=== PATIENT | male | born 1945 | race Hispanic/Latino ===

== ENCOUNTER 2017-06-08 14:40 | Inpatient (IN) | payer MEDICAID, MEDICARE, OTHER ==
[~2017-06-08] VITALS: Ht 157.5 cm; Wt 59.4 kg
[~2017-06-08 14:40] MED LIST: CLEOCIN HCL150 MG PO; HUMALOG100 UNITS/ SQ; HYDRALAZINE HCL10 MG PO; LEVEMIR100 UNIT/1 SQ; LEVOTHYROXINE50 MCG PO; LIPITOR20 MG PO; LISINOPRIL10 MG PO; PLAVIX75 MG PO
[2017-06-08] MEDS ORDERED: DEXTROSE 50% SYRINGE 50 ML IV PRN (17:15)
[2017-06-08] MEDS ORDERED: MORPHINE SULFATE 2 MG/ML SYR IV PRN ×2 (17:15→20:30)
[2017-06-08] MEDS ORDERED: ONDANSETRON HCL INJ 2 MG/ML VIAL IV PRN (17:15)
--- NOTE | 2017-06-08 17:37 | Diagnostic Imaging Report ---
PROCEDURE:FOOT RIGHT COMPLETE COMPARISON:None. INDICATIONS:RIGHT 2ND TOE PAIN, INFECTION FINDINGS:3 views of the right foot show amputation of the third digit at the mid metatarsal level and amputation of the fifth digit at the distal metatarsal level. There is erosion of the distal aspect of the second distal phalanx with overlying soft tissue swelling. No other fracture or dislocation. Extensive small vessel arterial calcification is noted. CONCLUSION: 1. Erosion of the distal aspect of the second distal phalanx with overlying soft tissue swelling. Findings are concerning for osteomyelitis. MRI may be helpful for further characterization. 2. Amputations of the third and fifth digits at the metatarsal levels. Dictated by: Nikolay Zhang M.D. on 06/08/2017 at 17:46 Electronically approved by: Nikolay Zhang M.D. on 06/08/2017 at 17:46
[2017-06-08] MEDS ORDERED: MORPHINE SULFATE 5 MG/ML VIAL IV PRN ×2 (17:45→21:45)
[2017-06-08 19:10] LABS: BASOPHILS % 0.4 % (0.0-1.0); EOSINOPHILS # (AUTO) 0.1 (0.0-0.4); EOSINOPHILS % 0.9 % (0.0-6.0); HEMATOCRIT 33.4 % (38.2-49.6); HEMOGLOBIN 11.8 g/dL (14.0-18.0); LYMPHOCYTES # (AUTO) 1.9 (1.0-3.2); LYMPHOCYTES % 24.8 % (18.0-39.1); MEAN CORPUSCULAR HEMOGLOBIN 33.1 pg (28-32); MEAN CORPUSCULAR HGB CONC 35.3 g/dL (31-35); MEAN CORPUSCULAR VOLUME 93.8 fL (81-99); MONOCYTES # (AUTO) 0.7 (0.2-0.8); MONOCYTES % 8.8 % (4.4-11.3); NEUTROPHILS % 64.8 % (38.7-80.0); PLATELET COUNT 194 x10e3/uL (140-360); RED BLOOD COUNT 3.56 x10e6/uL (4.3-5.7); RED CELL DISTRIBUTION WIDTH 12.1 % (11.7-14.4)
[2017-06-08 19:17] LABS: INR 0.89; PROTHROMBIN TIME 12.5 seconds (11.9-14.5)
[2017-06-08 19:18] LABS: PARTIAL THROMBOPLASTIN TIME 41.2 seconds (23.8-35.5)
[2017-06-08 19:25] LABS: ALBUMIN 3.8 g/dL (3.5-5.0); ALBUMIN/GLOBULIN RATIO 0.9 (0.8-2.0); ANION GAP 10.1 mmol/L (8-16); CALCIUM 9.4 mg/dL (8.4-10.2); CREATININE, SERUM 1.27 mg/dL (0.72-1.25); POTASSIUM 4.1 mmol/L (3.5-5.1)
[2017-06-08] MEDS: CEFEPIME HCL 1 GM VIAL IV SCH (20:50)
[2017-06-08] MEDS: INSULIN REGULAR, HUMAN 100 UNIT/1 ML 3ML VIAL SQ SCH (20:50)
[2017-06-08] MEDS ORDERED: CEFEPIME HCL 1 GM VIAL IV SCH (21:00)
[2017-06-08] MEDS ORDERED: VANCOMYCIN 1GM/NS 250 ML 250 ML IV SCH ×2 (21:00→21:01)
[2017-06-08] MEDS: HYDRALAZINE HCL 10 MG TAB PO SCH (21:15)
[2017-06-08 21:17] LABS: CHOL/HDL RATIO 2.8 (3.9-4.7)
[2017-06-08 21:36] LABS: THYROID STIMULATING HORMONE 0.254 uIU/mL (0.350-4.940)
--- NOTE | 2017-06-08 21:56 | History and Physical ---
Patient was seen in the office last week with an inflamed gangrenous toe of the right foot. He is advised, at that time, to go to the emergency room for emergent hospitalization, for vascular reassessment, and likely further surgical treatment. History has included amputation of 2 toes previously on left foot and of toes 3 and 5 on the right foot. The patient has a long history of chronically uncontrolled diabetes mellitus with limited compliance. A1c around high chronically. History includes significant peripheral vascular. 1st and 2nd toes left foot and distal forefoot prior amputations on the left. History includes reactive PPD. Primary hypertension. Hyperlipoproteinemia. The patient previously declined recommended meds and colonoscopy, and ophthalmology examinations and diets. Pneumovax was given 2014 and need not be given in this hospitalization again. Currently on review of systems, the patient denies headache or visual change. Denies chest pain or shortness of breath. He has been sedentary. Denies current nausea, vomiting or diarrhea. No bleeding. Denies symptoms. He has had some discomfort in his ischemic toe on the right foot. The patient's history is not known to be reliable. He denies surgeries other than as mentioned above. Positive family history of diabetes. SOCIAL HISTORY: Denies alcohol. Stopped smoking approximately 17 years ago. See also prior visit here in August. Had been treated, at that time, for inflammation of the left foot. He was kindly seen and by Dr. Easton and underwent August 12 angiography and revascularization percutaneously involving the left anterior tibial artery with arthrectomies and balloon angioplasty, see operative notes. See also prior to admission med list when available per electronic medical record. Patient does not know his current meds. Will review office records when able. See also admitting orders by ER physicians including Dr. Amaro. Current hemoglobin 11.8, white count 7.7, platelets 194,000. INR 0.89. Admission glucose per ER 212. Creatinine 1.27, BUN 30. Blood cultures requested per ER. Foot x-ray today distal aspect 2nd distal phalanx with overlying soft tissue swelling. "Findings are concerning for osteomyelitis." Prior amputations 3rd and 5th digits at the metatarsal levels. EXAM GENERAL: The patient is in no distress now. VITALS: Temperature 97.2. Pulse 69 and regular. Respiratory rate 16. BP 158/71. O2 sat 100%. HEENT: Pupils round, reactive. Lenses hazy. Throat clear. NECK: Supple. Carotids palpable. PULMONARY: Auscultation grossly clear. CARDIAC: Sounds S1, S2 soft. ABDOMEN: Soft. Bowel sounds normal. EXTREMITIES: Lower extremities without edema or clubbing. Lower extremities without palpable pulses. Patient's testing for sensation is grossly intact according to the patient's responses. He does have a ischemic right gangrenous right 2nd distal phalanx. Possible osteomyelitis per x-ray as mentioned. NEURO: DTRs depressed. Strength fair. Sensorium is baseline. GENITALIA: Negative. CURRENT IMPRESSION: Chronically ill gentleman with chronically uncontrolled diabetes mellitus with limited compliance. Multiple severe medical illnesses as mentioned above. These include hyperlipoproteinemia. Peripheral vascular disease. Diabetic nephropathy. Chronic hypothyroidism. Prior amputations, multiple toes as above including right foot prior amputation of 3rd and 5th toes. Left forefoot, 1 and 2 toes. Primary hypertension as mentioned. Patient presents now with dry gangrenous with possibly osteomyelitis changes, distal phalanx, 2nd toe. CURRENT PLANS: To assess the patient's vascular status. Podiatric surgical consultation was requested by ER physician. 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 Antibiotics were initiated. To follow up diabetic parameters and blood pressures closely. See also initial and followup orders. Need to follow up drug level and adjustment of antibiotics appropriate for his size and renal function. Needs appropriate diet. To attempt reeducation. See also initial and followup orders. Job#: [id number] CQ
[2017-06-09] VITALS (7 sets, daily range): BP systolic 123–164; BP diastolic 72–88
[2017-06-09] MEDS ORDERED: LEVOTHYROXINE SODIUM 50 MCG TAB PO SCH ×2 (06:00→09:00)
--- NOTE | 2017-06-09 06:09 | Diagnostic Imaging Report ---
CHEST 2 VIEWS, Technique: CHEST 2 VIEWS Comparison: 08/11/2016 Clinical history: \S\ascvd, high blood pressure \[id number] \S\0535 \S\Y DISCUSSION: Stable appearance of the heart, mediastinum, lungs and pleural spaces. IMPRESSION: No acute abnormality Signed by: Dr Jacqueline Zhao MD on 06/09/2017 6:05 AM
[2017-06-09] MEDS: INSULIN REGULAR, HUMAN 100 UNIT/1 ML 3ML VIAL SQ SCH ×2 (07:30→11:27)
[2017-06-09] MEDS: INSULIN DETEMIR 100 UNIT/ML PEN SQ SCH (09:00)
[2017-06-09] MEDS: CEFEPIME HCL 1 GM VIAL IV SCH ×2 (09:57→23:10)
[2017-06-09] MEDS: HYDRALAZINE HCL 10 MG TAB PO SCH ×3 (09:57→22:10)
[2017-06-09] MEDS: CLOPIDOGREL BISULFATE 75 MG TAB PO SCH (09:57)
[2017-06-09] MEDS: ATORVASTATIN 20 MG TAB PO SCH (09:57)
[2017-06-09 12:13] LABS: FREE THYROXINE INDEX 2.3074 (1.4-3.8); T3 UPTAKE 35.39 % (22.50-37.00)
[2017-06-09] MEDS ORDERED: DEXTROSE 50% SYRINGE 50 ML IV PRN (13:15)
--- NOTE | 2017-06-09 14:21 | Consultation ---
DATE OF CONSULTATION: June 09, 2017 PODIATRY CONSULTATION REASON FOR CONSULTATION: Gangrenous 2nd digit of the right foot. HISTORY OF PRESENT ILLNESS: Mr. Forbes is a pleasant male 72 years of age, admitted secondary to gangrenous changes associated to his right foot. Apparently he was treated as an outpatient basis. He was told to go to the ED last week, per Dr. Sutherland's note. Presented to the ED yesterday or the day before with worsening gangrenous changes to the 2nd digit of the right foot. I was once again asked to evaluate and recommend treatment. PAST MEDICAL HISTORY 1. Uncontrolled diabetes. 2. Peripheral arterial disease. 3. Hypertension. 4. Hyperlipoproteinemia. SURGICAL HISTORY: Multiple digit amputations bilateral feet. FAMILY HISTORY: Noncontributory. ELEVEN-POINT REVIEW OF SYSTEMS: Negative. ALLERGIES: NEGATIVE. MEDICINES: Please see MAR for current medication list. PHYSICAL EXAMINATION GENERAL: AO x3. NAD. HEENT: Normocephalic, atraumatic, anicteric. ABDOMEN: Soft, nontender, nondistended. RESPIRATORY: Symmetrical expansion. No distress. PSYCHIATRIC: Normal affect. EXTREMITIES: Gangrenous changes 2nd digit right foot, distal tip of the same. ASSESSMENT 1. Gangrene 2nd digit right foot. 2. Underlying peripheral arterial disease. PLAN: Recommend digit amputation. Distal tip of the same is nonviable, somewhat moist and fluctuant. Patient educated on risks and complications of the same and is willing and able to proceed. There is a possibility of more proximal amputation if the aforementioned fails. Patient will be placed n.p.o. tonight and surgical intervention tomorrow morning. I would like to thank Dr. Sutherland for allowing me to participate in the care of this patient. Job#: [id number] EV
[2017-06-09] MEDS ORDERED: INSULIN REGULAR, HUMAN 100 UNIT/1 ML 3ML VIAL SQ SCH (16:30)
[2017-06-09] MEDS: INSULIN LISPRO 100 UNIT/1 ML 3ML VIAL SQ SCH ×2 (16:30→22:10)
[2017-06-09] MEDS ORDERED: SODIUM CHLORIDE 0.9% 250ML 250 ML ONE (22:24)
[2017-06-09] MEDS: VANCOMYCIN 1GM/NS 250 ML 250 ML IV SCH (23:15)
[2017-06-10] VITALS: BP 149/74
[2017-06-10 04:00] VITALS: BP 128/75
[2017-06-10] MEDS: LEVOTHYROXINE SODIUM 25 MCG TABLET PO SCH (05:58)
[2017-06-10] MEDS ORDERED: LEVOTHYROXINE SODIUM 50 MCG TAB PO SCH (06:00)
[2017-06-10] MEDS ORDERED: BACITRACIN 50,000 UNIT VIAL ONE (06:36)
[2017-06-10] MEDS ORDERED: LIDOCAINE HCL 2% LOCAL 20 ML VIAL INJ ONE (06:39)
[2017-06-10 07:03] LABS: ANION GAP 12.5 mmol/L (8-16); BLOOD UREA NITROGEN 23 mg/dL (7-26); BUN/CREATININE RATIO 22 (6-25); CALCIUM 9.4 mg/dL (8.4-10.2); CARBON DIOXIDE 25 mmol/L (22-29); CHLORIDE 105 mmol/L (98-107); CREATININE, SERUM 1.05 mg/dL (0.72-1.25); EST GLOMERULAR FILTRATION RATE > 60 ML/MIN (60-); GLUCOSE 237 mg/dL (74-118); POTASSIUM 4.5 mmol/L (3.5-5.1); SODIUM 138 mmol/L (136-145)
[2017-06-10] MEDS: INSULIN LISPRO 100 UNIT/1 ML 3ML VIAL SQ SCH ×4 (07:30→22:10)
--- NOTE | 2017-06-10 07:55 | Operative Report ---
DATE OF PROCEDURE: June 10, 2017 PREOPERATIVE DIAGNOSIS: Gangrene, distal aspect, 2nd digit, right foot. POSTOPERATIVE DIAGNOSIS: Gangrene, distal aspect, 2nd digit, right foot. PROCEDURE: Amputation of distal interphalangeal joint disarticulation, 2nd digit, right foot. ANESTHESIA: General LMA. HEMOSTASIS: Pneumatic tourniquet to right ankle and foot at 150 mmHg. ESTIMATED BLOOD LOSS: Less than 5 mL. JOB CAPTAIN: None. INJECTABLES: Ten mL of 2% lidocaine plain as a postoperative block. INDICATIONS FOR PROCEDURE: Mr. Forbes is a pleasant male admitted secondary to the aforementioned diagnoses with progressive gangrenous changes of the 2nd digit of the right foot. He was educated on risks and complications of amputation, including, but not limited to the need for more proximal amputation, nonhealing, persistent infection and others. He is willing and able to proceed. DESCRIPTION OF PROCEDURE: Under mild sedation, he was brought to the operating room and placed on the operating table in the supine position. Following induction and administration of general LMA anesthesia by the anesthesia services, a well-padded pneumatic tourniquet was placed on the patient's right ankle. Next, the distal right foot was scrubbed, prepped and draped in the usual aseptic manner. The extremity was then elevated and exsanguinated, and tourniquet inflated. Attention was then directed to the 2nd digit of the right foot where it was disarticulated utilizing 2 fishmouth incisions or using 2 converging elliptical incisions as fishmouth at the level of the PIPJ. The same was then disarticulated and passed from the operative site. Area was then copiously irrigated. Bleeders were cauterized and subsequently closed. The patient was then subsequently extubated, tourniquet deflated and dressings applied. Postoperative block administered. Transferred to the PACU stable. Job#: [id number] WILBER
--- NOTE | 2017-06-10 08:30 | Diagnostic Imaging Report ---
PROCEDURE:FOOT RIGHT AP \T\ LAT TECHNIQUE:AP and lateral views right foot INDICATION:Postoperative evaluation COMPARISON:Patients [facility], DX, FOOT RIGHT COMPLETE, 06/08/2017, 15:03. FINDINGS: See conclusion. CONCLUSION: 1. Interval amputation of the second toe middle and distal phalanges. 2. Expected postsurgical changes at the second toe ray including soft tissue swelling and subcutaneous emphysema. 3. Remaining regional imaged skeleton is intact. Third digit transmetatarsal amputation. Fifth digit metatarsal head amputation. 4. Extensive regional arteriosclerosis. 5. No acute abnormality or evidence of acute osteomyelitis. Dictated by: Sergio Romero M.D. on 06/10/2017 at 8:38 Electronically approved by: Sergio Romero M.D. on 06/10/2017 at 8:38
[2017-06-10] MEDS: CLOPIDOGREL BISULFATE 75 MG TAB PO SCH (09:00)
[2017-06-10] MEDS: CEFEPIME HCL 1 GM VIAL IV SCH ×2 (09:44→21:06)
[2017-06-10] MEDS: HYDRALAZINE HCL 10 MG TAB PO SCH ×3 (09:45→21:06)
[2017-06-10] MEDS: ATORVASTATIN 20 MG TAB PO SCH (09:45)
[2017-06-10] MEDS: INSULIN DETEMIR 100 UNIT/ML PEN SQ SCH (09:46)
[2017-06-10 11:41] VITALS: BP 127/80
--- NOTE | 2017-06-10 14:10 | Consultation ---
DATE OF CONSULTATION: June 09, 2017 CARDIAC CONSULTATION REASON FOR CONSULTATION: Gangrenous right foot involving the 2nd toe and the dorsum of the foot. HISTORY: This is a 72-year-old gentleman, who is very poorly historian. Apparently, patient is known with longstanding history of diabetes mellitus, severe end-organ damage. His diabetes is poorly controlled. He had prior several toe amputations. He was at this institution in August 2016, where he had gangrenous left foot. At that time, we managed successfully to save that foot with CSI atherectomy of the left anterior tibial artery. Subsequently, patient had his surgery of the 1st and 2nd left toe and he had full clearance of his infection and then, it healed beautifully. Patient very noncompliant with medication and as per patient for at least 2 to 3 weeks, he is having gangrenous changes in the right foot. He attributed that to the fact he was in the store and he stepped on something and then, infection started and becoming gangrenous again with fever and chills. It got worsening, he needs to come to the emergency room yesterday. The gangrene is advanced involving the 2nd toe and the dorsum of the right foot. Patient had prior amputation of the 3rd and 5th toe on that foot. Despite all this vascular disease, patient denies having any angina; however, this needs to be taken with precaution because the patient is a poor historian. REVIEW OF SYSTEMS CARDIAC: He denied having angina. He does have easy fatigability, shortness of breath on exertion, but he is able to be functional. He denied having any prior myocardial infarction, any orthopnea, paroxysmal nocturnal dyspnea, syncope or presyncope. PULMONARY: No cough. No hemoptysis. GI: No hematemesis. No melena. : Increased frequency of urination. MUSCULOSKELETAL: Aches and pains. NEUROLOGIC: Severe peripheral neuropathy, decreased sensation of the lower extremities. HEMATOLOGICAL: Easy bruising, but no bleeding. VASCULAR: Patient's status of several toe amputations on the left including the 1st and 2nd toe with salvage intervention sparing his foot and the rest of the leg. Patient also had 3rd and 5th toe on the right foot amputated in the past. SOCIAL HISTORY: He is . He stays with his brother. He stopped smoking in year 1999. He does not drink alcohol. He is retired. PAST MEDICAL HISTORY 1. Diabetes mellitus. 2. Hypertension. 3. Hypercholesterolemia. 4. Repeated lower extremity infection and peripheral arterial vascular disease, status post amputation of the right 3rd and 5th toes and the 1st and 2nd left toe. 5. Salvage intervention and sparing his left foot with atherectomy and angioplasty of the left anterior tibial artery. HOME MEDICATIONS 1. Patient not quite sure what he is taking at home, but, currently, patient placed on vancomycin and cefepime. 2. He started on Lipitor 20 mg a day. 3. Plavix 75 mg a day. 4. Hydralazine 10 mg 3 times a day. 5. Levothyroxine 37.5 mcg a day. ALLERGIES: NONE. FAMILY HISTORY: Strongly positive for diabetes mellitus, hypertension, and coronary artery disease. PHYSICAL EXAMINATION VITALS: Height of 5'2". Weight of 129 pounds. Blood pressure 160/70. Heart rate of 80. Respiratory rate of 18. Afebrile. HEENT: Pupils are reactive. NECK: No elevation of jugular venous pulsation. CHEST: Chest decreased air entry, but clear to auscultation and percussion. HEART: PMI 5th left intercostal space. Normal 1st and 2nd heart sounds with good bowel sounds. ABDOMEN: Soft with good bowel sounds. EXTREMITIES: Palpable femoral pulses +2 left popliteal, +1 right popliteal. No pulses in both feet. On the left foot, nicely healed with amputation of the 1st and 2nd toe. On the right heel, there is wet gangrene involving the 2nd toe, sparing the 1st toe, but extending to the dorsum of the foot. LABORATORY DATA: Sodium of 135, potassium of 4.1, BUN of 30, creatinine of 1.27. Hemoglobin of 11.8, hematocrit 33%, WBC count of 7.8, platelet of 194,000. IMAGING: Chest x-ray showed no major abnormality. Triglyceride of 64, cholesterol of 134, HDL of 48, LDL of 73. TSH of 2.54. IMPRESSIONS AND PLAN 1. Gangrene and cellulitis of the right foot. He will have definitely loss of that toe and probably metatarsal amputation. 2. Advanced severe peripheral arterial vascular disease, status post intervention in August 2016, with salvage of the left foot. 3. Diabetes mellitus, severe end-organ damage. 4. Severe peripheral neuropathy. 5. Hypertension. 6. Chronic renal insufficiency. 7. Hypertension. 8. Proteinuria in his urine. 9. Poorly compliant. Patient scheduled already for surgery tomorrow. Will follow patient's progression. Most likely needs intervention to salvage the right leg, otherwise the level of amputation probably will be high involving BKA. All this discussed and explained for him. Already seen by Dr. Prado and scheduled for surgery tomorrow by divorce attorney. I believe he will not heal and he needs another salvage intervention to save him if possible. Will follow patient's progression with you and thank you for the kind referral. Job#: [id number] CQ
[2017-06-10] MEDS ORDERED: LIDOCAINE HCL 2% LOCAL INJ 5 ML SDV VIAL INJ ONE (14:53)
[2017-06-10] MEDS ORDERED: ONDANSETRON HCL INJ 2 MG/ML VIAL ONE (14:53)
[2017-06-10] MEDS ORDERED: PHENYLEPHRINE HCL 1% 10 MG/ML VIAL ONE (14:53)
[2017-06-10] MEDS ORDERED: PROPOFOL IV EMULSION 10 MG/ML 20 ML VIAL ONE (14:53)
[2017-06-10] MEDS ORDERED: SEVOFLURANE INHAL SOLN 250 ML PEN BTL ONE (14:53)
[2017-06-10] MEDS ORDERED: MIDAZOLAM HCL 2 MG/2 ML VIAL ONE (15:14)
[2017-06-10 16:10] VITALS: BP 115/69
[2017-06-10 20:00] VITALS: BP 141/73
[2017-06-10] MEDS: VANCOMYCIN 1GM/NS 250 ML 250 ML IV SCH (21:15)
[2017-06-11 00:20] VITALS: BP 128/71
[2017-06-11 04:15] VITALS: BP 124/79
[2017-06-11] MEDS: LEVOTHYROXINE SODIUM 25 MCG TABLET PO SCH (05:16)
[2017-06-11] MEDS: INSULIN LISPRO 100 UNIT/1 ML 3ML VIAL SQ SCH ×4 (07:30→21:12)
[2017-06-11 07:37] VITALS: BP 118/67
[2017-06-11] MEDS: INSULIN DETEMIR 100 UNIT/ML PEN SQ SCH (09:00)
[2017-06-11] MEDS: CLOPIDOGREL BISULFATE 75 MG TAB PO SCH (09:23)
[2017-06-11] MEDS: CEFEPIME HCL 1 GM VIAL IV SCH ×2 (09:23→20:49)
[2017-06-11] MEDS: HYDRALAZINE HCL 10 MG TAB PO SCH ×3 (09:23→20:49)
[2017-06-11] MEDS: ATORVASTATIN 20 MG TAB PO SCH (09:23)
[2017-06-11 11:21] VITALS: BP 121/71
[2017-06-11 15:35] VITALS: BP 132/81
[2017-06-11 20:00] VITALS: BP 153/86
[2017-06-11] MEDS: VANCOMYCIN 1GM/NS 250 ML 250 ML IV SCH (20:49)
[2017-06-12] VITALS: BP 140/77
[2017-06-12 04:00] VITALS: BP 141/69
[2017-06-12] MEDS: LEVOTHYROXINE SODIUM 25 MCG TABLET PO SCH (05:28)
[2017-06-12] MEDS: INSULIN LISPRO 100 UNIT/1 ML 3ML VIAL SQ SCH ×4 (07:30→21:00)
[2017-06-12 07:40] VITALS: BP 138/77
[2017-06-12] MEDS: CEFEPIME HCL 1 GM VIAL IV SCH ×2 (09:29→21:19)
[2017-06-12] MEDS: CLOPIDOGREL BISULFATE 75 MG TAB PO SCH (09:30)
[2017-06-12] MEDS: HYDRALAZINE HCL 10 MG TAB PO SCH ×3 (09:30→21:20)
[2017-06-12] MEDS: ATORVASTATIN 20 MG TAB PO SCH (09:30)
[2017-06-12] MEDS: INSULIN DETEMIR 100 UNIT/ML PEN SQ SCH (09:31)
[2017-06-12 11:27] VITALS: BP 137/77
[2017-06-12 15:47] VITALS: BP 111/71
[2017-06-12] MEDS: ENOXAPARIN SOD INJ 40 MG/0.4 ML SYR SC SCH (17:38)
[2017-06-12 20:00] VITALS: BP 149/80
[2017-06-12] MEDS: VANCOMYCIN 1GM/NS 250 ML 250 ML IV SCH (21:20)
[2017-06-13] VITALS: BP 144/79
[2017-06-13 04:00] VITALS: BP 134/67
[2017-06-13] MEDS: LEVOTHYROXINE SODIUM 25 MCG TABLET PO SCH (06:10)
[2017-06-13 08:00] VITALS: BP 140/77
[2017-06-13] MEDS: INSULIN LISPRO 100 UNIT/1 ML 3ML VIAL SQ SCH ×4 (08:00→21:00)
[2017-06-13] MEDS: CEFEPIME HCL 1 GM VIAL IV SCH ×2 (09:00→21:00)
[2017-06-13] MEDS: HYDRALAZINE HCL 10 MG TAB PO SCH ×3 (09:00→21:00)
[2017-06-13] MEDS: CLOPIDOGREL BISULFATE 75 MG TAB PO SCH (09:00)
[2017-06-13] MEDS: ATORVASTATIN 20 MG TAB PO SCH (09:00)
[2017-06-13] MEDS: INSULIN DETEMIR 100 UNIT/ML PEN SQ SCH (09:00)
[2017-06-13 12:00] VITALS: BP 139/74
[2017-06-13 16:00] VITALS: BP 148/79
[2017-06-13] MEDS: ENOXAPARIN SOD INJ 40 MG/0.4 ML SYR SC SCH (17:00)
[2017-06-13 20:00] VITALS: BP 133/71
[2017-06-13] MEDS: VANCOMYCIN 1GM/NS 250 ML 250 ML IV SCH (21:01)
[2017-06-14] VITALS: BP 124/59
[2017-06-14 04:00] VITALS: BP 124/61
[2017-06-14] MEDS: LEVOTHYROXINE SODIUM 25 MCG TABLET PO SCH (06:00)
[2017-06-14 07:19] LABS: BASOPHILS % 0.6 % (0.0-1.0); EOSINOPHILS # (AUTO) 0.2 (0.0-0.4); EOSINOPHILS % 2.4 % (0.0-6.0); HEMATOCRIT 33.3 % (38.2-49.6); HEMOGLOBIN 11.6 g/dL (14.0-18.0); LYMPHOCYTES # (AUTO) 1.7 (1.0-3.2); LYMPHOCYTES % 27.2 % (18.0-39.1); MEAN CORPUSCULAR HGB CONC 34.8 g/dL (31-35); MEAN CORPUSCULAR VOLUME 94.6 fL (81-99); MONOCYTES # (AUTO) 0.6 (0.2-0.8); MONOCYTES % 9.3 % (4.4-11.3); NEUTROPHILS # (AUTO) 3.7 (2.1-6.9); PLATELET COUNT 212 x10e3/uL (140-360); RED BLOOD COUNT 3.52 x10e6/uL (4.3-5.7); RED CELL DISTRIBUTION WIDTH 11.9 % (11.7-14.4)
[2017-06-14] MEDS: INSULIN LISPRO 100 UNIT/1 ML 3ML VIAL SQ SCH ×4 (07:30→22:04)
[2017-06-14 07:44] LABS: ANION GAP 10.3 mmol/L (8-16); CALCIUM 9.2 mg/dL (8.4-10.2); CREATININE, SERUM 1.25 mg/dL (0.72-1.25); POTASSIUM 4.3 mmol/L (3.5-5.1)
[2017-06-14 08:00] VITALS: BP 128/77
[2017-06-14] MEDS ORDERED: INSULIN DETEMIR 100 UNIT/ML PEN SQ SCH (09:00)
[2017-06-14] MEDS: CLOPIDOGREL BISULFATE 75 MG TAB PO SCH (09:00)
[2017-06-14] MEDS: CEFEPIME HCL 1 GM VIAL IV SCH (09:00)
[2017-06-14] MEDS: HYDRALAZINE HCL 10 MG TAB PO SCH ×3 (09:00→21:00)
[2017-06-14] MEDS: ATORVASTATIN 20 MG TAB PO SCH (09:00)
[2017-06-14] MEDS: SODIUM CHLORIDE 0.9% 1000ML 1,000 ML IV SCH ×2 (10:47→20:47)
[2017-06-14 12:00] VITALS: BP 135/74
[2017-06-14 16:00] VITALS: BP 159/91
[2017-06-14 20:00] VITALS: BP 147/82
[2017-06-15] VITALS: BP 134/70
[2017-06-15] MEDS: LEVOTHYROXINE SODIUM 25 MCG TABLET PO SCH (03:08)
[2017-06-15 04:00] VITALS: BP 133/60
[2017-06-15 07:20] LABS: BASOPHILS % 0.6 % (0.0-1.0); EOSINOPHILS # (AUTO) 0.1 (0.0-0.4); EOSINOPHILS % 1.6 % (0.0-6.0); HEMATOCRIT 32.1 % (38.2-49.6); HEMOGLOBIN 11.3 g/dL (14.0-18.0); LYMPHOCYTES # (AUTO) 1.9 (1.0-3.2); LYMPHOCYTES % 27.7 % (18.0-39.1); MEAN CORPUSCULAR HEMOGLOBIN 33.3 pg (28-32); MEAN CORPUSCULAR HGB CONC 35.2 g/dL (31-35); MEAN CORPUSCULAR VOLUME 94.7 fL (81-99); MONOCYTES # (AUTO) 0.6 (0.2-0.8); MONOCYTES % 9.2 % (4.4-11.3); PLATELET COUNT 200 x10e3/uL (140-360); RED BLOOD COUNT 3.39 x10e6/uL (4.3-5.7); RED CELL DISTRIBUTION WIDTH 11.9 % (11.7-14.4)
[2017-06-15] MEDS: INSULIN LISPRO 100 UNIT/1 ML 3ML VIAL SQ SCH ×4 (07:30→22:03)
[2017-06-15 07:46] LABS: ALANINE AMINOTRANSFERASE 14 IU/L (0-55); ALBUMIN 3.1 g/dL (3.5-5.0); ALBUMIN/GLOBULIN RATIO 0.9 (0.8-2.0); ALKALINE PHOSPHATASE 47 IU/L (40-150); ANION GAP 11.4 mmol/L (8-16); BLOOD UREA NITROGEN 25 mg/dL (7-26); BUN/CREATININE RATIO 24 (6-25); CALCIUM 8.7 mg/dL (8.4-10.2); CARBON DIOXIDE 26 mmol/L (22-29); CHLORIDE 107 mmol/L (98-107); CREATININE, SERUM 1.03 mg/dL (0.72-1.25); EST GLOMERULAR FILTRATION RATE > 60 ML/MIN (60-); GLUCOSE 229 mg/dL (74-118); POTASSIUM 4.4 mmol/L (3.5-5.1); SODIUM 140 mmol/L (136-145)
[2017-06-15 07:55] VITALS: BP 151/78
[2017-06-15] MEDS: CEFEPIME HCL 1 GM VIAL IV SCH (08:53)
[2017-06-15] MEDS: HYDRALAZINE HCL 10 MG TAB PO SCH ×3 (09:00→22:02)
[2017-06-15] MEDS: INSULIN DETEMIR 100 UNIT/ML PEN SQ SCH ×2 (09:00→11:59)
[2017-06-15] MEDS: ATORVASTATIN 20 MG TAB PO SCH (09:00)
[2017-06-15] MEDS: CLOPIDOGREL BISULFATE 75 MG TAB PO SCH (09:00)
[2017-06-15] MEDS: VANCOMYCIN 750MG/NS 150ML IVPB 150 ML IV SCH (09:01)
[2017-06-15] MEDS ORDERED: MIDAZOLAM HCL 2 MG/2 ML VIAL ONE (11:00)
[2017-06-15] MEDS ORDERED: HEPARIN SOD (PORCINE) 1000 UNIT/ML 30ML ONE (11:00)
[2017-06-15] MEDS ORDERED: FENTANYL CITRATE/PF 100MCG/2 ML INJ ONE (11:00)
[2017-06-15] MEDS ORDERED: HEPARIN SOD/SOD CHLORIDE 2,000 ML ONE (11:01)
[2017-06-15] MEDS ORDERED: SODIUM CHLORIDE 0.9% 1000ML 1,000 ML ONE ×2 (11:01→11:53)
[2017-06-15] MEDS ORDERED: IOPAMIDOL 300MG/ML 100 ML INFUS..BTL IV ONE ×2 (11:01→12:08)
[2017-06-15] MEDS ORDERED: LIDOCAINE HCL 2% LOCAL 20 ML VIAL ONE (11:01)
[2017-06-15 11:21] VITALS: BP 133/77
--- NOTE | 2017-06-15 11:36 | Consultation ---
DATE OF CONSULTATION: June 15, 2017 HISTORY OF PRESENT ILLNESS: Isai Forbes is a pleasant, 72-year-old gentleman with underlying history of type-2 diabetes and multiple medical issues including prior positive PPD test and underlying history of hypertension. The patient currently denies any history of prostate enlargement or kidney stone disease. Has had amputations of both right and left feet of toes. Currently lying supine, asymptomatic. Denies any nausea, vomiting, shortness of breath, hematuria, dysuria or diarrhea. He has history of diabetic neuropathy and diabetic nephropathy apparently with apparent history of CKD. Right toe amputation 3 and 5, with left toe amputations as well. ALLERGIES: NO APPARENT DRUG ALLERGIES. CURRENT MEDICATIONS: Patient is on: 1. Morphine p.r.n. 2. Receiving vancomycin 1 g IV q.24 h. 3. Normal saline 125 mL an hour. 4. Atorvastatin 20 mg daily. 5. Cefepime was started but discontinued, currently on 1 g IV piggyback daily. 6. Plavix 75 mg daily. 7. Lovenox 40 mg subcutaneous daily. 8. He is on Humalog. 9. Hydralazine 10 mg p.o. t.i.d. 10. Insulin. 11. Levothyroxine 37.5 mcg p.o. daily. 12. Morphine p.r.n. 13. Ondansetron p.r.n. SOCIAL HISTORY: Does not smoke or drink. FAMILY HISTORY: Significant for type-2 diabetes. PHYSICAL EXAMINATION GENERAL: Awake, alert, lying supine, in no apparent distress. VITALS: Blood pressure 151/70. Pulse rate 75. Afebrile. Oxygen saturation 98% on room air. HEAD AND NECK: Corneas are clear. Oral mucosa is dry. LUNGS: Relatively clear. No rales or rhonchi. HEART: S1 and S2 audible. ABDOMEN: Otherwise soft and nontender. LOWER EXTREMITIES: Examination shows no edema. IMPRESSION: [id number] kidney failure, most likely proteinuria. Will obtain urinalysis, spot urine kikbtfi-[id number] ratio, and kidney ultrasound. Continue with IV fluids. Will recommend to monitor peak and trough levels of vancomycin and aim to maintain levels between 14 and 18. Otherwise, patient is comfortable. Volume status stable. White count is normal. No significant acid-base disturbance. Please see orders and workup. Job#: [id number] TONNY
[2017-06-15] MEDS ORDERED: VERAPAMIL HCL 2.5 MG/ML 2 ML VIAL ONE (11:53)
[2017-06-15] MEDS: SODIUM CHLORIDE 0.9% 1000ML 1,000 ML IV SCH ×2 (12:01→21:40)
[2017-06-15] MEDS ORDERED: PROTAMINE SULFATE 10 MG/ML 5 ML VIAL ONE (12:40)
[2017-06-15] MEDS ORDERED: ASPIRIN 81 MG CHEW TAB ONE (12:48)
[2017-06-15] MEDS ORDERED: CLOPIDOGREL BISULFATE 75 MG TAB ONE (12:48)
[2017-06-15 15:42] VITALS: BP 162/77
--- NOTE | 2017-06-15 16:31 | Operative Report ---
DATE OF PROCEDURE: June 15, 2017 PROCEDURES PERFORMED 1. Right groin antegrade stick. 2. Third-order angiography of the entire lower extremity with selective catheter placement into the right anterior tibial artery. 3. CSI atherectomy and Lutonix drug-eluting balloon angioplasty of the right popliteal artery. 4. CSI atherectomy followed by balloon angioplasty of the right anterior tibial artery, which had long runoff into the foot. OPERATORS 1. Loc Easton MD 2. Matt Easton MD INDICATIONS FOR THE PROCEDURE: This is a 72-year-old gentleman with a history of hypertension, type-2 diabetes, hypercholesterolemia, peripheral arterial disease with known amputation of the left 1st and 2nd toes secondary to gangrene, who presents with critical limb ischemia, tissue loss and active gangrene over the dorsum of the right foot as well as his 2nd toe requiring an amputation. There is still delayed wound healing, and it appears gangrene is moving up to the foot. This is a limb salvage procedure and high-risk situation. DESCRIPTION OF PROCEDURE: After risks, benefits, pros and cons of today's procedure were explained to the patient and his family, they agreed to proceed. He was brought to the cardiac catheterization laboratory where the feet were placed upwards on the table, and he was placed in a supine fashion with both groins prepped and draped in the usual sterile fashion. One percent lidocaine solution was used to numb the right groin region. Access to the right femoral artery was obtained utilizing a micropuncture system, and a size 6-Ivorian Terumo Slender sheath was placed. We initially performed serial digital subtraction angiography with right lower extremity runoff of the entire right leg. It became apparent that there was severe right popliteal artery focal disease along with 100% occlusion of the right posterior tibial artery, subtotal distal right peroneal artery, and 1-vessel runoff going into the right foot, being the right anterior tibial artery, where there is also noteworthy mid to distal right anterior tibial artery disease of 80% to 90%. The vasculature in the foot is severely diseased and has extensive collateral network. We decided to improve flow going down the right anterior tibial artery in an attempt for limb salvage. Five thousand units of intravenous heparin were given for systemic anticoagulation. We took a 90-cm seeker 0.035 support catheter and then a 180-cm, 0.014 [place] wire. We were able to successfully cross all tandem lesions and place the wire into the right dorsalis pedis artery. At that point in time, we advanced the catheter into the mid to distal right anterior tibial artery and performed 3rd-order angiography of that vessel outlining the heavily calcified severe disease. At that point in time, we decided to proceed with CSI orbital atherectomy with angioplasty. We exchanged out for a 360 cm, 0.014 ViperWire and placed it into the right dorsalis pedis artery. We exchanged out the support catheter for a 1.25-mm Diamondback CSI atherectomy device and performed 3 runs of CSI atherectomy at low, medium and high speeds of the entire mid to distal right anterior tibial artery. At that point in time, we pulled the CSI atherectomy device to the popliteal artery. We ended up scoring the tandem focal severe popliteal artery lesion at high-speed CSI atherectomy. We then took an Ultraverse 2.5 x 150-mm balloon and dilated the mid to distal right anterior tibial artery up to 8 atmospheres pressure for 3 minutes. Final angiography revealed less than 10% to 20% residual stenosis, excellent flow down the leg, and no complications. We then took a Lutonix 5.0 x 60-mm balloon and treated the tandem popliteal artery lesions with an 8 atmospheres inflation for 3 minutes. Final angiography revealed less than 10% residual stenosis in the right popliteal artery region and normal flow with no complications. At that point in time, attempted Vascade closure device of our arteriotomy was semi-successful; however, there was considerable oozing. We decided to give adjunctive protamine 20 mg for an ACT that was above 250 and proceeded with manual pressure for 15 minutes, achieving hemostasis. COMPLICATIONS: None. ESTIMATED BLOOD LOSS: Minimal. FINDINGS 1. The right common femoral artery has mild luminal irregularities. 2. The right superficial femoral artery is heavily calcified throughout its entire length with diffuse 30% stenosis. 3. The left popliteal artery has 2 discrete probable lesions, one at 60% to 70% proximally and the other at 60% in the mid aspect of this vessel. 4. Right anterior tibial artery is heavily calcified with diffuse 80% to 90% mid to distal right anterior tibial artery stenosis and distal 1-vessel runoff to the foot. 5. The right tibioperoneal trunk has mild luminal irregularities. 6. The right posterior tibial artery is 100% occluded proximally with no significant reconstituted flow. 7. The right peroneal artery is very diffusely diseased with 50% proximal stenosis and 90-plus% subtotal occlusion in the distal aspect of this vessel. INTERVENTION SUMMARY 1. Successful treatment of the tandem right popliteal artery lesions with CSI atherectomy with a 1.25-mm bur at high speed followed by Lutonix drug-eluting balloon angioplasty 5.0 x 60 mm deployed up to 8 atmospheres of pressure for 3 minutes, resulting in less than 10% residual stenosis, normal flow and no complications. 2. Successful treatment of the 80% to 90% diffuse, mid to distal, heavily calcified, right anterior tibial artery with CSI Diamondback atherectomy, 1.25-mm bur deployed at low, medium and high speeds, followed by angioplasty with Ultraverse 2.5 x 150-mm balloon up to 8 atmospheres of pressure, resulting in less than 10% to 20% stenosis, normal flow and no complications. PLAN/RECOMMENDATIONS 1. Six to 8-hour bed rest post angiogram today. 2. Aspirin and Plavix therapy. 3. Aggressive risk factor modification and medical therapy. 4. We have improved the flow into the foot as best as we can. At this present time, our main goal will be local wound care and aggressive podiatry care. Hopefully, with the improved blood flow, we can salvage this gentleman's foot. Job#: [id number]
--- NOTE | 2017-06-15 17:00 | Diagnostic Imaging Report ---
PROCEDURE:US RETROPERITONEAL ( KIDNEY ). COMPARISON:None. INDICATIONS:BROOK[place]NN TECHNIQUE: Bañuelos-scale and color sonographic images of the bilateral kidneys and bladder where obtained in transverse and longitudinal planes. FINDINGS: RIGHT KIDNEY: 9.6 x 4.6 x 3.7 cm, cortex 1.7 cm Cysts: None. Solid masses: None Stones: None Hydronephrosis: None Echogenicity: Mildly increased LEFT KIDNEY: 9.6 x 4.4 x 4.4 cm, cortex 1.4 cm Cysts: None Solid masses: None Stones: None Hydronephrosis: None Echogenicity: Mildly increased Bladder: Prevoid volume 150.5 mL. Bilateral ureteral jets are visualized. Gallbladder wall thickening measuring 0.38 cm. Prostate: 2.9 x 2.8 x 2.9 cm. 21.4 mL. CONCLUSION: Mildly increased echogenicity, suggesting mild medical renal disease. No hydronephrosis. Dictated by: Jevon Shukla M.D. on 06/15/2017 at 17:08 Electronically approved by: Jevon Shukla M.D. on 06/15/2017 at 17:08
[2017-06-15 20:00] VITALS: BP 133/72
[2017-06-16] VITALS (8 sets, daily range): BP systolic 128–159; BP diastolic 59–76
[2017-06-16] MEDS: LEVOTHYROXINE SODIUM 25 MCG TABLET PO SCH (05:37)
[2017-06-16 07:08] LABS: BASOPHILS % 0.4 % (0.0-1.0); EOSINOPHILS # (AUTO) 0.1 (0.0-0.4); EOSINOPHILS % 1.8 % (0.0-6.0); HEMATOCRIT 32.5 % (38.2-49.6); HEMOGLOBIN 11.1 g/dL (14.0-18.0); LYMPHOCYTES # (AUTO) 1.6 (1.0-3.2); LYMPHOCYTES % 22.9 % (18.0-39.1); MEAN CORPUSCULAR HEMOGLOBIN 32.6 pg (28-32); MEAN CORPUSCULAR HGB CONC 34.2 g/dL (31-35); MEAN CORPUSCULAR VOLUME 95.6 fL (81-99); MONOCYTES # (AUTO) 0.6 (0.2-0.8); MONOCYTES % 8.7 % (4.4-11.3); NEUTROPHILS # (AUTO) 4.4 (2.1-6.9); NEUTROPHILS % 65.6 % (38.7-80.0); PLATELET COUNT 197 x10e3/uL (140-360); RED CELL DISTRIBUTION WIDTH 11.9 % (11.7-14.4)
[2017-06-16] MEDS: INSULIN LISPRO 100 UNIT/1 ML 3ML VIAL SQ SCH ×4 (07:30→21:19)
[2017-06-16 07:42] LABS: ALANINE AMINOTRANSFERASE 23 IU/L (0-55); ALBUMIN/GLOBULIN RATIO 0.9 (0.8-2.0); ALKALINE PHOSPHATASE 50 IU/L (40-150); ANION GAP 10.5 mmol/L (8-16); BLOOD UREA NITROGEN 22 mg/dL (7-26); BUN/CREATININE RATIO 25 (6-25); CALCIUM 8.7 mg/dL (8.4-10.2); CARBON DIOXIDE 27 mmol/L (22-29); CHLORIDE 105 mmol/L (98-107); CREATININE, SERUM 0.89 mg/dL (0.72-1.25); EST GLOMERULAR FILTRATION RATE > 60 ML/MIN (60-); GLUCOSE 166 mg/dL (74-118); POTASSIUM 4.5 mmol/L (3.5-5.1); SODIUM 138 mmol/L (136-145)
[2017-06-16] MEDS ORDERED: INSULIN DETEMIR 100 UNIT/ML PEN SQ SCH (09:00)
[2017-06-16] MEDS: VANCOMYCIN 750MG/NS 150ML IVPB 150 ML IV SCH (09:00)
[2017-06-16] MEDS: CLOPIDOGREL BISULFATE 75 MG TAB PO SCH (09:31)
[2017-06-16] MEDS: CEFEPIME HCL 1 GM VIAL IV SCH (09:31)
[2017-06-16] MEDS: HYDRALAZINE HCL 10 MG TAB PO SCH ×3 (09:31→21:02)
[2017-06-16] MEDS: SODIUM CHLORIDE 0.9% 1000ML 1,000 ML IV SCH (09:31)
[2017-06-16] MEDS: ATORVASTATIN 20 MG TAB PO SCH (09:31)
[2017-06-16] MEDS: LISINOPRIL 10 MG TAB PO SCH (10:35)
[2017-06-17] VITALS: BP 139/64
[2017-06-17 04:00] VITALS: BP 140/79
[2017-06-17] MEDS: LEVOTHYROXINE SODIUM 25 MCG TABLET PO SCH (06:45)
[2017-06-17] MEDS: INSULIN LISPRO 100 UNIT/1 ML 3ML VIAL SQ SCH ×3 (07:30→16:30)
[2017-06-17 08:00] VITALS: BP 119/66
[2017-06-17 08:02] LABS: BILIRUBIN,URINE NEGATIVE (NEGATIVE); CLARITY,URINE CLEAR (CLEAR); COLOR,URINE YELLOW (YELLOW); KETONES,URINE NEGATIVE (NEGATIVE); LEUKOCYTE ESTERASE ,URINE NEGATIVE (NEGATIVE); NITRITE,URINE NEGATIVE (NEGATIVE); PROTEIN,URINE DIPSTICK NEGATIVE (NEGATIVE); URINE UROBILINOGEN 0.2 mg/dL (0.2 - 1)
[2017-06-17 08:16] LABS: CREATININE,URINE RANDOM 57.56 mg/dL (63-166); TOTAL PROTEIN, URINE 14.6 mg/dL (1-14)
[2017-06-17 08:29] LABS: BACTERIA,URINE RARE /HPF; EPITHELIAL CELLS,URINE RARE /LPF; RBC,URINE 0-5 /HPF (0-5); TRANSITIONAL EPI CELLS,URINE FEW; WBC,URINE (MAN) 0-5 /HPF (0-5)
[2017-06-17] MEDS ORDERED: INSULIN DETEMIR 100 UNIT/ML PEN SQ SCH (09:00)
[2017-06-17] MEDS ORDERED: ASPIRIN 81 MG ENTERIC COATED PO SCH (09:00)
[2017-06-17] MEDS: VANCOMYCIN 750MG/NS 150ML IVPB 150 ML IV SCH (09:00)
[2017-06-17] MEDS: HYDRALAZINE HCL 10 MG TAB PO SCH ×2 (09:19→15:00)
[2017-06-17] MEDS: ATORVASTATIN 20 MG TAB PO SCH (09:19)
[2017-06-17] MEDS: CLOPIDOGREL BISULFATE 75 MG TAB PO SCH (09:19)
[2017-06-17] MEDS: CEFEPIME HCL 1 GM VIAL IV SCH (09:19)
[2017-06-17] MEDS: LISINOPRIL 10 MG TAB PO SCH (09:19)
[2017-06-17 12:00] VITALS: BP 128/78
[2017-06-17 16:00] VITALS: BP 92/49
--- NOTE | 2017-06-17 18:00 | Discharge Summary ---
See also History and Physical and ER notes. HISTORY OF PRESENT ILLNESS: The patient was hospitalized with gangrenous right mid toe and he was placed on empiric antibiotics. His esthetician makeup artist, Dr. Prado, performed partial amputation of the toe. The wound on the tip continues with gangrenous changes and sutures are still in the wound. See also orders. The patient was authorized to be discharged by his podiatric surgeon on the . I was not called regarding that order. He was told to keep the wound covered and clean and to see his foot surgeon, esthetician makeup artist next week. Land Inspector recommended Cleocin 300 mg q.i.d. and the patient was given a prescription for this. Patient has longstanding type 2 diabetes, chronically uncontrolled, as he is noncompliant with his medicines and diet. While here blood sugars were monitored closely and managed medically. The patient was counseled regarding appropriate diet and meds upon discharge. History included reactive PPD. Patient has primary hypertension which was monitored and treated medically. Diagnosis includes hyperlipoproteinemia. The. patient was counseled regarding appropriate diet. He is on a statin. Patient has generalized severe atherosclerosis and he was seen by his application packager while here. See also prior operative reports August 12, atherectomy and angioplasties for the left leg. This admission the patient did undergo per Dr. Easton angiography right lower extremity with atherectomy, right popliteal artery angioplasty, atherectomy right anterior tibial artery with angioplasty. See operative notes. He is advised to initiate and continue aspirin and Plavix. Drug levels were monitored during stay. Thyroid supplements for hypothyroidism as prior to admission were continued. Patient has nephropathy and he was seen by his evp operations, Dr. Loja, prior to and after his angiogram and renal parameters were stable. See also serial laboratory studies. Admission BUN 30, creatinine 1.27, glucose 212 on admission. TSH 0.254, T4 index normal at 2.3. B-natriuretic peptide 43. On June 16 BUN 22, creatinine 0.89. Cultures of blood negative. Urine culture pending. See also path reports. Foot x-ray concerning for osteomyelitis distal aspect 2nd distal phalanx, right foot. Prior amputations of 3rd and 5th digits at metatarsal levels of right foot. Admission chest x-ray clear. Peripheral vascular disease on lower extremity Dopp scans. Renal ultrasound revealed no hydronephrosis. Medical renal disease seen. See also intraoperative arterial studies per computer documented. IMPRESSION: As above. Prognosis is poor. The patient is chronically uncontrolled regarding his diabetes for compliance issues. He has gangrenous changes of his wound and will likely require further amputation. Again, he will follow up next week with myself and his esthetician makeup artist. He is advised regarding these circumstances. He is advised his sutures will need to be removed when cleared with his surgeon. DEDE HUERTA MD Job#: [id number] GH
[2017-06-17] MEDS ORDERED: ASPIR 8181 MG PO (18:33)
[2017-06-18] MEDS ORDERED: INSULIN DETEMIR 100 UNIT/ML PEN SQ SCH (09:00)
== END 2017-06-17 18:51 | disposition home or self-care (01) | DRG 253 ==
LOC: ER 14:40 → UNDOADMIN 18:09 → ERHOLD 18:09 → MED/SURG3 23:58
PROVIDERS: ADMIT Internal Medicine; ATTEND Internal Medicine
PROC: 0Y6R0Z3 Detachment at Right 2nd Toe, Low, Open Approach (ICD-10-PCS; principal; 2017-06-10 07:00)
PROC: 047M3ZZ Dilation of Right Popliteal Artery, Percutaneous Approach (ICD-10-PCS; 2017-06-15)
PROC: 04CM3ZZ Extirpation of Matter from Right Popliteal Artery, Percutaneous Approach (ICD-10-PCS; 2017-06-15)
PROC: B41F1ZZ Fluoroscopy of Right Lower Extremity Arteries using Low Osmolar Contrast (ICD-10-PCS; 2017-06-15)
PROC: 04CP3ZZ Extirpation of Matter from Right Anterior Tibial Artery, Percutaneous Approach (ICD-10-PCS; 2017-06-15)
PROC: 047P3ZZ Dilation of Right Anterior Tibial Artery, Percutaneous Approach (ICD-10-PCS; 2017-06-15)
DX: E11.52 Type 2 diabetes mellitus with diabetic peripheral angiopathy with gangrene (principal); I70.261 Atherosclerosis of native arteries of extremities with gangrene, right leg; N17.9 Acute kidney failure, unspecified; E11.21 Type 2 diabetes mellitus with diabetic nephropathy; E11.42 Type 2 diabetes mellitus with diabetic polyneuropathy; L03.115 Cellulitis of right lower limb; M86.9 Osteomyelitis, unspecified; E11.65 Type 2 diabetes mellitus with hyperglycemia; Z89.422 Acquired absence of other left toe(s); Z89.421 Acquired absence of other right toe(s); Z91.14 Patient's other noncompliance with medication regimen; Z91.11 Patient's noncompliance with dietary regimen; E78.5 Hyperlipidemia, unspecified; I70.91 Generalized atherosclerosis; E11.22 Type 2 diabetes mellitus with diabetic chronic kidney disease; I12.9 Hypertensive chronic kidney disease with stage 1 through stage 4 chronic kidney disease, or unspecified chronic kidney disease; N18.9 Chronic kidney disease, unspecified; E11.69 Type 2 diabetes mellitus with other specified complication; Z79.02 Long term (current) use of antithrombotics/antiplatelets; Z79.82 Long term (current) use of aspirin; Z79.4 Long term (current) use of insulin; Z87.891 Personal history of nicotine dependence
CPT/HCPCS: 36140; 36247; 36415; 37224; 71020; 76770; 77002; 80048; 80053; 80061; 80202; 81001; 82570; 82948; 83880; 84156; 84436; 84443; 84479; 84550; 85025; 85610; 85651; 85730; 87040; 87086; 88302; 88305; 88311; 92924; 92925; 93005; 93925; 96367; 96372; 96376; 97139; 99284; C1769; J0692; J1644; J1650; J2001; J2250; J2270; J2370; J2405; J2720; J3370; J7030; J7050; Q9967

== ENCOUNTER 2017-10-01 13:41 | Inpatient (IN) | payer MEDICARE, OTHER ==
[~2017-10-01] VITALS: Ht 162.6 cm; Wt 59.0 kg
[~2017-10-01 13:41] MED LIST changes: +ASPIR 8181 MG PO
--- OUTSIDE RECORDS SUMMARY | 2017-10-01 13:44 | XMS REPORT ---
Author Author [facility] Address Unknown Phone Unavailable Care Team Providers Care Optical Goods Worker Name Role Phone DEDE HUERTA Unavailable Unavailable Problems This patient has no known problems. Allergies, Adverse Reactions, Alerts This patient has no known allergies or adverse reactions. Medications This patient has no known medications. Results Test Description Test Time Test Comments Text Results Atomic Results Result Comments US RENAL RETROPERITONEAL COMP [place] [address] Patient Name: FINN DOUGLAS MR #: [id number] : 1945 Age/Sex: 72/M Req #: [id number] Adm Physician: DEDE HUERTA MD Ordered by: NAKITA LEE, NICOL LEE Report #: [id number] Location: [facility] Room/Bed: [facility] Procedure: [id number] US/US RENAL RETROPERITONEAL COMP Exam Date: 06/15/17 Exam Time: 1556 REPORT STATUS: Signed PROCEDURE: US RETROPERITONEAL ( KIDNEY ). COMPARISON: None. INDICATIONS: [place]NN TECHNIQUE: Bañuelos-scale and color sonographic images of the bilateral kidneys and bladder where obtained in transverse and longitudinal planes. FINDINGS: RIGHT KIDNEY: 9.6 x 4.6 x 3.7 cm, cortex 1.7 cm Cysts: None. Solid masses: None Stones: None Hydronephrosis: None Echogenicity: Mildly increased LEFT KIDNEY: 9.6 x 4.4 x 4.4 cm, cortex 1.4 cm Cysts: None Solid masses: None Stones: None Hydronephrosis: None Echogenicity: Mildly increased Bladder: Prevoid volume 150.5 mL. Bilateral ureteral jets are visualized. Gallbladder wall thickening measuring 0.38 cm. Prostate: 2.9 x 2.8 x 2.9 cm. 21.4 mL. CONCLUSION: Mildly increased echogenicity, suggesting mild medical renal disease. No hydronephrosis. Dictated by: Carlos Woods M.D. on 06/15/2017 at 17:08 Electronically approved by: Carlos Woods M.D. on 06/15/2017 at 17: 08 Dictated By: CARLOS WOODS MD 07 Transcribed By: ARIEL on 06/15/171707 COPY TO: NICOL MACE FOOT RIGHT AP LAT [place] [address] Patient Name: FINN DOUGLAS MR #: [id number] : 1945 Age/Sex: 72/M Req # : [id number] Adm Physician: DEDE HUERTA MD Ordered by: DARCIE RIVERA DPM Report #: [id number] Location: MED/SURG3 Room/Bed: [facility] Procedure: [id number] DX/FOOT RIGHT AP LAT Exam Date: 06/10/17 Exam Time: 0800 REPORT STATUS: Signed PROCEDURE : FOOT RIGHT AP T LAT TECHNIQUE: AP and lateral views right foot INDICATION: Postoperative evaluation COMPARISON: [facility], DX, FOOT RIGHT COMPLETE, 06/08/2017, 15:03. FINDINGS: See conclusion. CONCLUSION: 1. Interval amputation of the second toe middle and distal phalanges. 2. Expected postsurgical changes at the second toe ray including soft tissue swelling and subcutaneous emphysema. 3. Remaining regional imaged skeleton is intact. Third digit transmetatarsal amputation. Fifth digit metatarsal head amputation. 4. Extensive regional arteriosclerosis. 5. No acute abnormality or evidence of acute osteomyelitis. Dictated by: Asad Cortez M.D. on 06/10/2017 at 8:38 Electronically approved by: Asad Cortez M.D. on 06/10/2017 at 8: 38 Dictated By: ASAD CORTEZ MD 7 Transcribed By: ARIEL on 06/10/17837 COPY TO: DARCIE RIVERA DPM CHEST 2 VIEWS [place] [address] Patient Name: FINN DOUGLAS MR #: [id number] : 1945 Age/Sex: 72/M Req #: [id number] Adm Physician: DEDE HUERTA MD Ordered by: DEDE HUERTA MD Report #: [id number] Location: [facility] Room/Bed: [facility] _ Procedure: [id number] DX/CHEST 2 VIEWS Exam Date: 06/09/17 Exam Time: 534 REPORT STATUS: Signed CHEST 2 VIEWS, Technique: CHEST 2 VIEWS Comparison: 08/11/2016 Clinical history: S ascvd, high blood pressure S [id number] S 0535 S Y DISCUSSION: Stable appearance of the heart, mediastinum, lungs and pleural spaces. IMPRESSION : No acute abnormality Signed by: Dr Raul Zhao MD on 06/09/2017 6: 05 AM Dictated By: RAUL ZHAO MD 4 Transcribed By: FABIANO on 06/09/17604 COPY TO: DEDE HUERTA MD FOOT RIGHT COMPLETE [place] [address] Patient Name: FINN DOUGLAS MR #: [id number] : 1945 Age/Sex: 72/M Req # : [id number] Adm Physician: Ordered by: CLIFFORD REYNA NP Report #: [id number] Location: ER Room/Bed: Procedure: [id number] DX/FOOT RIGHT COMPLETE Exam Date: 06/08/17 Exam Time : 1710 REPORT STATUS: Signed PROCEDURE: FOOT RIGHT COMPLETE COMPARISON: None. INDICATIONS: RIGHT 2ND TOE PAIN, INFECTION FINDINGS: 3 views of the right foot show amputation of the third digit at the mid metatarsal level and amputation of the fifth digit at the distal metatarsal level. There is erosion of the distal aspect of the second distal phalanx with overlying soft tissue swelling. No other fracture or dislocation. Extensive small vessel arterial calcification is noted. CONCLUSION: 1. Erosion of the distal aspect of the second distal phalanx with overlying soft tissue swelling. Findings are concerning for osteomyelitis. MRI may be helpful for further characterization. 2. Amputations of the third and fifth digits at the metatarsal levels. Dictated by: Cory Resendiz M.D. on 06/08/2017 at 17:46 Electronically approved by: Cory Resendiz M.D. on 06/08/2017 at 17:46 Dictated By: CORY RESENDIZ MD 45 COPY TO: CLIFFORD REYNA NP
[2017-10-01] MEDS ORDERED: PIPER-TAZ 3.375 GM 50 ML IV STA (14:01)
[2017-10-01] MEDS ORDERED: VANCOMYCIN 1GM/NS 250 ML 250 ML IV ONE (14:30)
[2017-10-01] MEDS ORDERED: DEXTROSE 50% SYRINGE 50 ML IV PRN ×3 (15:30→17:00)
[2017-10-01 15:37] LABS: BASOPHILS % 0.4 % (0.0-1.0); EOSINOPHILS % 0.4 % (0.0-6.0); HEMATOCRIT 37.5 % (38.2-49.6); HEMOGLOBIN 13.3 g/dL (14.0-18.0); LYMPHOCYTES # (AUTO) 1.8 (1.0-3.2); LYMPHOCYTES % 18.4 % (18.0-39.1); MEAN CORPUSCULAR HEMOGLOBIN 32.7 pg (28-32); MEAN CORPUSCULAR HGB CONC 35.5 g/dL (31-35); MEAN CORPUSCULAR VOLUME 92.1 fL (81-99); MONOCYTES # (AUTO) 0.9 (0.2-0.8); MONOCYTES % 8.7 % (4.4-11.3); NEUTROPHILS # (AUTO) 7.1 (2.1-6.9); NEUTROPHILS % 71.4 % (38.7-80.0); PLATELET COUNT 315 x10e3/uL (140-360); RED BLOOD COUNT 4.07 x10e6/uL (4.3-5.7)
--- NOTE | 2017-10-01 15:37 | Diagnostic Imaging Report ---
FOOT RIGHT COMPLETE - 3 views HISTORY: Pain. COMPARISON: Right foot 06/10/2017 FINDINGS: Bones: Second toe: Amputation of the second toe at the proximal interphalangeal joint. Previous clean surgical disarticulation now demonstrates areas of dystrophic calcifications. No definite periosteal reaction. New periarticular osteopenia and cortical lucency of the second metatarsal head. Third toe: Stable transmetatarsal amputation. Fourth toe: New periarticular osteopenia at the fourth metatarsal head. Fifth toe: Stable transmetatarsal amputation with dystrophic calcifications. No periosteal reaction. Small plantar calcaneal enthesophyte. No acute fracture or dislocation. Deformity of third metatarsophalangeal joint. No periosteal reaction, erosion, or abnormal soft tissue calcification. Joints: The joint spaces are well-maintained. Soft tissues: Diffuse soft tissue swelling. Diffuse small vessel vascular calcifications. IMPRESSION: 1. New periarticular osteopenia at the second and fourth metatarsal heads, worrisome for osteomyelitis. 2. Stable postsurgical changes of the second PIP, third transmetatarsal, and fifth transmetatarsal. Signed by: Dr. Jevon Shukla M.D. on 10/01/2017 3:33 PM
[2017-10-01 15:53] LABS: ALBUMIN 3.5 g/dL (3.5-5.0); ALBUMIN/GLOBULIN RATIO 0.6 (0.8-2.0); ANION GAP 17.8 mmol/L (8-16); CALCIUM 10.2 mg/dL (8.4-10.2); CREATININE, SERUM 1.35 mg/dL (0.72-1.25); POTASSIUM 4.8 mmol/L (3.5-5.1)
--- NOTE | 2017-10-01 16:02 | History and Physical ---
I was called by the emergency room physician nurse assistant to see this patient on an emergency basis today and did so. He presented with gangrenous right large toe and next toe. Patient has a long history of peripheral vascular disease and chronically noncompliance with uncontrolled diabetes. He has had prior amputations of 2 toes on the right foot, including the 5th toe and suspected 4th toe. He has also had partial resection of the left forefoot. See also prior admissions here. Patient states he has been followed by his oracle erp architect, Dr. Prado on an outpatient basis. Previously, the patient had declined recommended colonoscopy, ophthalmology exams and diets. Compliance with meds is not known. Pneumovax was given in 2015. Patient denies headache or visual change. Denies chest pain or shortness of breath. Denies nausea, vomiting or diarrhea. No abdominal pain. He denies dysuria or frequency. He is sedentary. Has been ambulatory. FAMILY HISTORY: Positive for diabetes. SURGERIES: The patient is unaware of other surgeries. Denies alcohol. Stopped smoking approximately 18 years ago. Patient has undergone revascularization percutaneously involving the left anterior tibial artery here previously with Dr. Easton. See prior notes and prior stays. There is no lab available for this patient yet. PHYSICAL EXAMINATION GENERAL: Patient's sensorium is baseline. He is awake, oriented and talkative. No distress. VITALS: Temperature 97.6, pulse 88, respiratory rate 15, BP by ER 137/69, O2 sat 98%. HEENT: Mild pallor. No icterus. Pupils round and reactive. Throat clear. NECK: Flexes. Carotids palpable. No goiter. PULMONARY: Auscultation clear. CARDIAC: Sounds S1 and S2 soft. ABDOMEN: Soft. Bowel sounds are normal. EXTREMITIES: Femoral pulses are present. Pulses below knees are present. No pedal pulses. As mentioned above, the patient has old amputation of the left 1st and 2nd toes and partial forefoot. He has prior amputations of the 5th and another toe on the right foot and now has tender gangrenous right forefoot and right large toe, and another toe beside the right large toe. The toes are black and malodorous. DTRs depressed. Laboratory studies for this day again are not available. A foot x-ray was done and the report is pending. IMPRESSION 1. Gangrenous right large toe, 2nd toe and forefoot. 2. Peripheral vascular disease. 3. Neuropathy. 4. Diabetes mellitus with chronic insulin use. Compliance limited. Chronically uncontrolled. 5. Prior amputations as above. Current plans are to control the patient's diabetes. Consultation with his foot surgeon has been requested and he will need some amputations. History includes hypothyroidism. Continue home supplements for thyroid. Case discussed with the ER physician and PA. See also initial and followup orders. Job#: [id number] WILBER
[2017-10-01] MEDS ORDERED: MORPHINE SULFATE 2 MG/ML SYR IV PRN (16:15)
[2017-10-01] MEDS ORDERED: ONDANSETRON HCL 4 MG ORAL DISINTEGRATING TAB PO PRN (16:15)
[2017-10-01] MEDS ORDERED: INSULIN REGULAR, HUMAN 100 UNIT/1 ML 3ML VIAL ONE (17:22)
[2017-10-01 18:08] VITALS: BP 137/63
[2017-10-01 18:38] VITALS: BP 137/63
[2017-10-01 20:00] VITALS: BP 127/65
[2017-10-01] MEDS ORDERED: INSULIN REGULAR, HUMAN 100 UNIT/1 ML 3ML VIAL SQ SCH ×2 (21:00→22:00)
[2017-10-01] MEDS ORDERED: INSULIN DETEMIR 100 UNIT/ML PEN SQ ONE (21:45)
[2017-10-01] MEDS: HYDRALAZINE HCL 10 MG TAB PO SCH (22:00)
[2017-10-01] MEDS: PIPER-TAZ 3.375 GM 50 ML IV SCH ×2 (22:00→22:15)
[2017-10-01] MEDS: INSULIN LISPRO 100 UNIT/1 ML 3ML VIAL SQ SCH (22:00)
[2017-10-01] MEDS ORDERED: SODIUM CHLORIDE 0.9% 250ML 250 ML ONE (22:37)
[2017-10-02] VITALS (7 sets, daily range): BP systolic 88–149; BP diastolic 50–71
[2017-10-02] MEDS: INSULIN LISPRO 100 UNIT/1 ML 3ML VIAL SQ SCH ×6 (02:17→22:14)
[2017-10-02] MEDS: LEVOTHYROXINE SODIUM 50 MCG TAB PO SCH (05:52)
--- NOTE | 2017-10-02 07:21 | Diagnostic Imaging Report ---
EXAMINATION: CHEST 2 VIEWS COMPARISON: 06/09/2017 INDICATION: Preop DISCUSSION: LINES: None. LUNGS: The lungs are well inflated without evidence of mass or infiltrate. PLEURA: No pleural effusion or pneumothorax. HEART AND MEDIASTINUM: The cardiomediastinal silhouette is unremarkable. BONES AND SOFT TISSUES: No focal osseous lesions. The soft tissues are normal. IMPRESSION: No acute cardiopulmonary disease. Signed by: Dr. Chinyere Corrales MD on 10/02/2017 7:17 AM
[2017-10-02 07:55] LABS: BASOPHILS % 0.5 % (0.0-1.0); EOSINOPHILS % 0.5 % (0.0-6.0); HEMATOCRIT 32.7 % (38.2-49.6); HEMOGLOBIN 11.5 g/dL (14.0-18.0); LYMPHOCYTES # (AUTO) 1.4 (1.0-3.2); LYMPHOCYTES % 16.9 % (18.0-39.1); MEAN CORPUSCULAR HEMOGLOBIN 32.5 pg (28-32); MEAN CORPUSCULAR HGB CONC 35.2 g/dL (31-35); MEAN CORPUSCULAR VOLUME 92.4 fL (81-99); MONOCYTES # (AUTO) 0.7 (0.2-0.8); MONOCYTES % 8.1 % (4.4-11.3); NEUTROPHILS # (AUTO) 5.9 (2.1-6.9); NEUTROPHILS % 73.4 % (38.7-80.0); PLATELET COUNT 290 x10e3/uL (140-360); RED BLOOD COUNT 3.54 x10e6/uL (4.3-5.7); RED CELL DISTRIBUTION WIDTH 12.1 % (11.7-14.4)
[2017-10-02 08:21] LABS: ALANINE AMINOTRANSFERASE 9 IU/L (0-55); ALBUMIN 2.9 g/dL (3.5-5.0); ALBUMIN/GLOBULIN RATIO 0.7 (0.8-2.0); ALKALINE PHOSPHATASE 49 IU/L (40-150); ANION GAP 12.8 mmol/L (8-16); BLOOD UREA NITROGEN 22 mg/dL (7-26); BUN/CREATININE RATIO 20 (6-25); CALCIUM 9.7 mg/dL (8.4-10.2); CARBON DIOXIDE 30 mmol/L (22-29); CHLORIDE 96 mmol/L (98-107); CREATININE, SERUM 1.08 mg/dL (0.72-1.25); EST GLOMERULAR FILTRATION RATE > 60 ML/MIN (60-); GLUCOSE 75 mg/dL (74-118); POTASSIUM 3.8 mmol/L (3.5-5.1); SODIUM 135 mmol/L (136-145)
[2017-10-02] MEDS: PIPER-TAZ 3.375 GM 50 ML IV SCH ×4 (09:21→20:47)
[2017-10-02] MEDS: CLOPIDOGREL BISULFATE 75 MG TAB PO SCH (09:21)
[2017-10-02] MEDS: HYDRALAZINE HCL 10 MG TAB PO SCH ×3 (09:21→20:47)
[2017-10-02] MEDS: LISINOPRIL 10 MG TAB PO SCH (09:21)
[2017-10-02] MEDS: ASPIRIN 81 MG CHEW TAB PO SCH (09:21)
[2017-10-02] MEDS ORDERED: VANCOMYCIN 1GM/NS 250 ML 250 ML IV ONE (16:30)
[2017-10-02] MEDS: ATORVASTATIN 20 MG TAB PO SCH (20:47)
[2017-10-02] MEDS: INSULIN DETEMIR 100 UNIT/ML PEN SQ SCH (20:48)
[2017-10-02] MEDS: HEPARIN SOD (PORCINE) 5,000 UNIT/ML VIAL SC SCH (20:48)
--- NOTE | 2017-10-02 21:31 | Consultation ---
DATE OF CONSULTATION: October 02, 2017 PODIATRY CONSULT CONSULTING PHYSICIAN: REASON FOR CONSULTATION: Gangrene of the right foot. CHIEF COMPLAINT/HISTORY OF PRESENT ILLNESS: A gentleman who is being treated by Dr. Prado in outpatient setting. The patient says he has had this slight discoloration increasing over last couple of weeks. At this point in time, he said it is quite painful. He currently denies any nausea, vomiting, fever, chills, any thigh pain, chest pain, calf pain, shortness of breath. PAST MEDICAL HISTORY: Diabetes mellitus, hypertension, and peripheral arterial occlusive disease. MEDICATIONS: See AUG. ALLERGIES: PATIENT DENIES. FAMILY MEDICAL HISTORY: Noncontributory. SOCIAL HISTORY: Patient denies alcohol, tobacco, and IV drug use. PREVIOUS SURGICAL HISTORY: Left foot digital amputations. Lower extremity . REVIEW OF SYSTEMS: See admission history and physical exam. PHYSICAL EXAM GENERAL: Patient alert, awake, and oriented times 3. Currently in no acute distress. VASCULAR: Patient has nonpalpable dorsalis pedis and posterior tibial pulse of the right lower extremity. Capillary refill time is nonexistent. SKIN: Appears warm proximal and distal. reveals significant malodor of the patient's right foot. There is slight discoloration of the right 1st and 2nd digit and plantar aspect of ball of the foot, as well as bone exposed to the right 2nd toe. ORTHOPEDIC: Patient's right lower extremity, minimal assessment, was deferred at this time. NEUROLOGIC: Patient has loss of protective sensation via 5.07-mm monofilament to the right lower extremity. LEFT LOWER EXTREMITY: Previous 1st ray amputation and 2nd digital amputation. ASSESSMENT 1. Peripheral arterial occlusive disease, right lower extremity. 2. Dry gangrene, right foot. 3. Diabetes mellitus, peripheral vascular disease. RECOMMENDATIONS 1. At this point in time, local wound care will be started. Patient will be seen by Dr. Prado tomorrow. 2. Recommend full vascular workup per primary care, as well as admitting physician. Further recommendation will be pending patient's clinical progression per Dr. Prado. Thank you for this consultation, will be happy to follow this patient with you. Job#: [id number] CQ
[2017-10-03] VITALS (7 sets, daily range): BP systolic 90–120; BP diastolic 48–59
[2017-10-03] MEDS: INSULIN LISPRO 100 UNIT/1 ML 3ML VIAL SQ SCH ×6 (02:21→22:00)
[2017-10-03] MEDS: LEVOTHYROXINE SODIUM 50 MCG TAB PO SCH (05:39)
[2017-10-03 07:02] LABS: BASOPHILS % 0.4 % (0.0-1.0); EOSINOPHILS # (AUTO) 0.1 (0.0-0.4); EOSINOPHILS % 0.8 % (0.0-6.0); HEMATOCRIT 29.7 % (38.2-49.6); HEMOGLOBIN 10.4 g/dL (14.0-18.0); LYMPHOCYTES # (AUTO) 1.6 (1.0-3.2); LYMPHOCYTES % 16.5 % (18.0-39.1); MEAN CORPUSCULAR HEMOGLOBIN 32.9 pg (28-32); MONOCYTES # (AUTO) 0.9 (0.2-0.8); MONOCYTES % 9.5 % (4.4-11.3); NEUTROPHILS # (AUTO) 6.9 (2.1-6.9); NEUTROPHILS % 72.2 % (38.7-80.0); PLATELET COUNT 294 x10e3/uL (140-360); RED BLOOD COUNT 3.16 x10e6/uL (4.3-5.7); RED CELL DISTRIBUTION WIDTH 12.3 % (11.7-14.4)
[2017-10-03 07:22] LABS: INR 1.09; PARTIAL THROMBOPLASTIN TIME 38.4 seconds (23.8-35.5); PROTHROMBIN TIME 13.3 seconds (11.9-14.5)
[2017-10-03 07:45] LABS: ANION GAP 11.3 mmol/L (8-16); CALCIUM 9.1 mg/dL (8.4-10.2); CREATININE, SERUM 1.22 mg/dL (0.72-1.25); POTASSIUM 4.3 mmol/L (3.5-5.1)
[2017-10-03] MEDS: HYDRALAZINE HCL 10 MG TAB PO SCH ×3 (08:35→21:00)
[2017-10-03] MEDS: LISINOPRIL 10 MG TAB PO SCH (08:35)
[2017-10-03] MEDS: ASPIRIN 81 MG CHEW TAB PO SCH (08:35)
[2017-10-03] MEDS: PIPER-TAZ 3.375 GM 50 ML IV SCH ×4 (08:35→22:00)
[2017-10-03] MEDS: CLOPIDOGREL BISULFATE 75 MG TAB PO SCH (08:35)
[2017-10-03] MEDS: HEPARIN SOD (PORCINE) 5,000 UNIT/ML VIAL SC SCH ×2 (09:11→21:10)
[2017-10-03] MEDS ORDERED: VANCOMYCIN 1GM/NS 250 ML 250 ML IV ONE (20:15)
[2017-10-03] MEDS: ATORVASTATIN 20 MG TAB PO SCH (20:26)
[2017-10-03] MEDS: INSULIN DETEMIR 100 UNIT/ML PEN SQ SCH (21:11)
[2017-10-04] VITALS (7 sets, daily range): BP systolic 104–133; BP diastolic 55–72
[2017-10-04] MEDS: INSULIN LISPRO 100 UNIT/1 ML 3ML VIAL SQ SCH ×6 (05:40→22:00)
[2017-10-04] MEDS: LEVOTHYROXINE SODIUM 50 MCG TAB PO SCH (06:09)
[2017-10-04] MEDS: HYDRALAZINE HCL 10 MG TAB PO SCH ×3 (08:42→21:00)
[2017-10-04] MEDS: PIPER-TAZ 3.375 GM 50 ML IV SCH ×4 (08:42→21:00)
[2017-10-04] MEDS: CLOPIDOGREL BISULFATE 75 MG TAB PO SCH (08:43)
[2017-10-04] MEDS: ASPIRIN 81 MG CHEW TAB PO SCH (08:43)
[2017-10-04] MEDS: HEPARIN SOD (PORCINE) 5,000 UNIT/ML VIAL SC SCH ×2 (08:43→21:00)
[2017-10-04] MEDS: LISINOPRIL 10 MG TAB PO SCH (11:00)
--- NOTE | 2017-10-04 14:11 | Consultation ---
DATE OF CONSULTATION: October 04, 2017 CARDIAC CONSULTATION REASON FOR THE CONSULTATION: Gangrenous right foot. HISTORY: This is a 72-year-old gentleman, very poor historian, very poorly compliant. He is known with long-standing history of diabetes mellitus, severe end-organ damage. His diabetes mellitus is very poorly controlled. He had prior several toe amputations. He was at this institution in August 2016 with gangrenous left foot. At that time, we managed successfully to save that foot with CSI atherectomy of the left anterior tibial artery. Patient had only amputation of his 1st and 2nd left toes. He had clearance of his infection, and it healed. He is still having the chronic discoloration of that foot. Regarding his right foot, he was here at this institution late May/early June this year. He had gangrene involving all the way up to the middle of the foreleg. It was very infected, very ill. Patient had salvage intervention with atherectomy of the popliteal artery and the posterior tibial artery. With that, the infection cleared, patient did better, and luckily enough, he had localized gangrene of the great toe and the 2nd toe and he was demarcating, still demarcating. Of note, patient does have amputation of the right 3rd and __4th toes. Patient followed by Dr. Prado as an outpatient. As per patient, it was dry gangrene, but he noted during this admission it started having some smell and he started having fever and he was worried it will get worse. He came to this institution, started on IV antibiotics. Podiatrics consult is obtained, and cardiac consult is obtained. Now patient's fever has disappeared. He looks better. He is still having a little pain around that area. REVIEW OF SYSTEMS: Patient is poor historian. His review of systems will be summarized. GENERAL: Fever and chills on admission. CARDIAC: No anginal chest pain. However, his activities are very limited. He denied having any orthopnea, paroxysmal nocturnal dyspnea, syncope or presyncope. PULMONARY: No cough, no hemoptysis. GASTROINTESTINAL: No hematemesis, no melena. GENITOURINARY: Increased frequency of urination. MUSCULOSKELETAL: Aches and pain. He was unable to flex his knee. He was not putting any weight on that foot for a long time. VASCULAR: Patient is status post prior amputation on the left foot including 1st and 2nd toe in a salvage intervention for that foot, and on the right foot he had amputation of the 3rd and __5th toe and then the gangrene is demarcated to the 1st toe and the 2nd toe and he is followed by Dr. Prado for that. SOCIAL HISTORY: He is . He stays with his brother. He stopped smoking in year 1999. He does not drink alcohol. PAST MEDICAL HISTORY: Diabetes mellitus, hypertension, hypercholesterolemia, repeated lower extremities infection, status post amputation of the left 1st and 2nd toes and the 3rd and __5th toes on the right with gangrene of the great toe and the 2nd toe. HOME MEDICATION: Does not know what he is taking at home. Probably he is not taking his medication. CURRENT MEDICATIONS FOLLOWING ADMISSION: Include 1. Plavix 75 mg a day. 2. Insulin sliding scale. 3. Zosyn. 4. Levothyroxine. 5. Atorvastatin 20 mg a day. 6. Lisinopril 10 mg a day. FAMILY HISTORY: Strongly positive for diabetes mellitus, hypertension and coronary artery disease. PHYSICAL EXAMINATION VITAL SIGNS: Height of 5 feet 4 inches, weight of 130 pounds, blood pressure 104/55, heart rate of 90, respiratory rate of 20, temperature of 98.3 Fahrenheit. HEENT: Pupils are reactive. NECK: No elevation of jugular venous pulsation. CHEST: Decreased air entry but clear to auscultation and percussion. HEART: PMI 5th left intercostal space. Normal 1st and 2nd heart sounds. ABDOMEN: Soft. EXTREMITIES: Palpable femoral and popliteal pulses in both legs. The right foot seems to be warm all the way to below the ankle. On the right foot, there is dry gangrene involving the great toe and the 2nd toe and there is mummification, and the bone is exposed in the 2nd toe. On the dorsum of the foot at the base of this toe, there is evidence of flocculation, possible wet infection on chronic gangrenous changes. On the left foot, there is loss of the 1st and 2nd toes and again it is warm. There are chronic skin changes. LAB DATA: Sodium of 134, potassium of 4.3, BUN 26, creatinine of 1.22 which is increased from admission of 1. Hemoglobin of 10.4, hematocrit 29%, platelet of 294,000. EKG showing normal sinus rhythm, nonspecific ST changes. IMPRESSION AND PLAN 1. Changes in the right foot consistent with gangrene. Possible superimposed recent infection. 2. Severe advanced peripheral vascular disease as described above. 3. Diabetes mellitus, severe end-organ damage. 4. Peripheral neuropathy. 5. Hypertension. 6. Chronic renal insufficiency, worsening since admission. 7. Proteinuria in the urine. 8. Poorly compliant. Cardiac-romero, my recommendation is amputation. The level of amputation as per Dr. Prado. I believe he should have metatarsal amputation. Hopefully this will heal. However, if Dr. Prado thinks it is not enough, then below-knee amputation to be done. I do not believe amputating the toes by themselves. If this is done, there is very decreased chance for healing. Case discussed and explained. Questions are answered. Case discussed also with Dr. Sutherland by phone. Job#: [id number] EV
[2017-10-04] MEDS ORDERED: CEFTRIAXONE SOD 1 GM VIAL IV NR (18:30)
[2017-10-04] MEDS: ATORVASTATIN 20 MG TAB PO SCH (21:00)
[2017-10-05] VITALS (7 sets, daily range): BP systolic 116–127; BP diastolic 57–64
[2017-10-05] MEDS: INSULIN LISPRO 100 UNIT/1 ML 3ML VIAL SQ SCH ×6 (02:00→20:39)
[2017-10-05] MEDS: LEVOTHYROXINE SODIUM 50 MCG TAB PO SCH (05:19)
[2017-10-05] MEDS: CLOPIDOGREL BISULFATE 75 MG TAB PO SCH (09:00)
[2017-10-05] MEDS: HYDRALAZINE HCL 10 MG TAB PO SCH ×3 (09:00→20:40)
[2017-10-05] MEDS: LISINOPRIL 10 MG TAB PO SCH (09:00)
[2017-10-05] MEDS: ASPIRIN 81 MG CHEW TAB PO SCH (09:00)
[2017-10-05] MEDS: HEPARIN SOD (PORCINE) 5,000 UNIT/ML VIAL SC SCH (09:00)
[2017-10-05] MEDS: PIPER-TAZ 3.375 GM 50 ML IV SCH ×4 (09:00→20:38)
[2017-10-05] MEDS ORDERED: FENTANYL CITRATE/PF 100MCG/2 ML INJ ONE (10:01)
[2017-10-05] MEDS ORDERED: MIDAZOLAM HCL 2 MG/2 ML VIAL ONE (10:01)
[2017-10-05] MEDS ORDERED: PIPER-TAZ 3.375 GM 100 ML ONE (11:16)
[2017-10-05] MEDS ORDERED: HYDROGEN PEROXIDE 120 ML BTL ONE (11:42)
[2017-10-05] MEDS ORDERED: ROPIVACAINE 0.5% 5 MG/ML 30 ML SDV ONE (12:04)
[2017-10-05] MEDS ORDERED: LIDOCAINE HCL 2% LOCAL 20 ML VIAL ONE (12:04)
[2017-10-05] MEDS ORDERED: NEOSTIGMINE 1 MG/ML 10ML VIAL ONE (12:53)
[2017-10-05] MEDS: SODIUM CHLORIDE 0.9% 1000ML 1,000 ML IV SCH (13:03)
[2017-10-05] MEDS ORDERED: HYDROCODONE/APAP 7.5MG-325MG 1 EA TAB PO PRN (13:15)
[2017-10-05] MEDS ORDERED: INSULIN REGULAR, HUMAN 100 UNIT/1 ML 3ML VIAL ONE (13:54)
--- NOTE | 2017-10-05 14:09 | Operative Report ---
DATE OF PROCEDURE: October 04, 2017 PREOPERATIVE DIAGNOSIS: 1. Peripheral vascular disease. 2. Diabetes mellitus. 3. Gangrene of the right foot with nonreconstructible disease. POSTOPERATIVE DIAGNOSIS: 1. Peripheral vascular disease. 2. Diabetes mellitus. 3. Gangrene of the right foot with nonreconstructible disease. PROCEDURE PERFORMED: Right below the knee amputation. MORTGAGE ORIGINATOR: ALEXA Daniel ESTIMATED BLOOD LOSS: About 250 mL. DRAINS: None. COMPLICATIONS: None. INDICATIONS AND FINDINGS: A 72-year-old diabetic male admitted with an infection of the right foot, was evaluated and treated initially by Podiatry. He suffered amputation of several toes in the past and now presented with progressive gangrene of the foot with osteomyelitis. A vascular workup revealed nonreconstructive disease and an amputation level that was likely to heal below the knee. It was decided that a transmetatarsal amputation would not heal, and we were then asked to proceed with right below the knee amputation. DESCRIPTION OF PROCEDURE: With the patient lying on the operative table in the supine position after administration of general anesthesia, he was prepped and draped for right below the knee amputation. A short anterior flap and a long posterior flap were drawn below the knee, and then the dissection was carried down through the skin and subcutaneous tissue down to the tibia, which was transected with the Gigli saw above 2 cm superior to the skin margin. The fibula was identified, and it was transected with the Gigli saw also about 2 cm superior to the tibial transection. The tibialis anterior and popliteal and peroneal vessels were patent and were suture ligated with 0 silk and then tied off. The peroneal nerve was transected and allowed to retract and tied off with 2-0 Vicryl to prevent bleeding. The flaps were very viable. Some muscular branches were suture ligated with 2-0 Vicryl, and then the flaps were closed using 0 Vicryl for the fascia and to approximate the muscle, and then the skin was closed using interrupted vertical mattress sutures with 3-0 silk. The stump was viable. There was good blood flow to the skin and to the muscles during the procedure. The patient tolerated the procedure well, was taken to the recovery room in stable condition. Job#: [id number] EV
[2017-10-05] MEDS ORDERED: CEFAZOLIN SOD 1 GM VIAL ONE (16:52)
[2017-10-05] MEDS ORDERED: PROPOFOL IV EMULSION 10 MG/ML 20 ML VIAL ONE (16:52)
[2017-10-05] MEDS ORDERED: SEVOFLURANE INHAL SOLN 250 ML PEN BTL ONE (16:52)
[2017-10-05] MEDS ORDERED: LIDOCAINE HCL 2% LOCAL INJ 5 ML SDV VIAL INJ ONE (16:52)
[2017-10-05] MEDS ORDERED: ONDANSETRON HCL INJ 2 MG/ML VIAL ONE (16:52)
[2017-10-05] MEDS ORDERED: DEXAMETHASONE SOD PHOS INJ 4 MG/ML VIAL ONE (16:52)
[2017-10-05] MEDS ORDERED: EPHEDRINE SULFATE INJ 50 MG/10 ML SYR ONE (16:52)
[2017-10-05 18:29] LABS: INR 1.1; PROTHROMBIN TIME 13.4 seconds (11.9-14.5)
[2017-10-05] MEDS: INSULIN DETEMIR 100 UNIT/ML PEN SQ SCH (20:39)
[2017-10-05] MEDS: ATORVASTATIN 20 MG TAB PO SCH (20:40)
[2017-10-05] MEDS ORDERED: INSULIN DETEMIR 100 UNIT/ML PEN SQ SCH (21:00)
[2017-10-06] VITALS (7 sets, daily range): BP systolic 119–173; BP diastolic 60–79
[2017-10-06] MEDS: SODIUM CHLORIDE 0.9% 1000ML 1,000 ML IV SCH ×2 (02:04→17:16)
[2017-10-06] MEDS: INSULIN LISPRO 100 UNIT/1 ML 3ML VIAL SQ SCH ×6 (02:06→22:43)
[2017-10-06] MEDS: LEVOTHYROXINE SODIUM 50 MCG TAB PO SCH (06:25)
[2017-10-06 06:55] LABS: BASOPHILS % 0.2 % (0.0-1.0); EOSINOPHILS % 0.3 % (0.0-6.0); HEMATOCRIT 30.1 % (38.2-49.6); HEMOGLOBIN 10.4 g/dL (14.0-18.0); LYMPHOCYTES # (AUTO) 1.9 (1.0-3.2); LYMPHOCYTES % 16.5 % (18.0-39.1); MEAN CORPUSCULAR HEMOGLOBIN 31.2 pg (28-32); MEAN CORPUSCULAR HGB CONC 34.6 g/dL (31-35); MEAN CORPUSCULAR VOLUME 90.4 fL (81-99); MONOCYTES # (AUTO) 1.3 (0.2-0.8); MONOCYTES % 11.4 % (4.4-11.3); NEUTROPHILS # (AUTO) 8.1 (2.1-6.9); PLATELET COUNT 210 x10e3/uL (140-360); RED BLOOD COUNT 3.33 x10e6/uL (4.3-5.7); RED CELL DISTRIBUTION WIDTH 16.6 % (11.7-14.4)
[2017-10-06 07:18] LABS: BLOOD UREA NITROGEN 17 mg/dL (7-26); BUN/CREATININE RATIO 19 (6-25); CALCIUM 8.6 mg/dL (8.4-10.2); CARBON DIOXIDE 28 mmol/L (22-29); CHLORIDE 104 mmol/L (98-107); CREATININE, SERUM 0.89 mg/dL (0.72-1.25); EST GLOMERULAR FILTRATION RATE > 60 ML/MIN (60-); GLUCOSE 77 mg/dL (74-118); SODIUM 139 mmol/L (136-145)
[2017-10-06] MEDS: PIPER-TAZ 3.375 GM 50 ML IV SCH ×4 (08:59→20:57)
[2017-10-06] MEDS: LISINOPRIL 10 MG TAB PO SCH (09:00)
[2017-10-06] MEDS: CLOPIDOGREL BISULFATE 75 MG TAB PO SCH (09:00)
[2017-10-06] MEDS: ASPIRIN 81 MG CHEW TAB PO SCH (09:00)
[2017-10-06] MEDS: HYDRALAZINE HCL 10 MG TAB PO SCH ×3 (09:00→20:57)
[2017-10-06] MEDS: MORPHINE SULFATE 2 MG/ML SYR IV PRN (17:55)
[2017-10-06] MEDS ORDERED: CLONIDINE HCL 0.1 MG TAB PO PRN (18:00)
[2017-10-06] MEDS: INSULIN DETEMIR 100 UNIT/ML PEN SQ SCH (20:43)
[2017-10-06] MEDS: ATORVASTATIN 20 MG TAB PO SCH (20:58)
[2017-10-07] VITALS (7 sets, daily range): BP systolic 131–168; BP diastolic 62–77
[2017-10-07] MEDS: INSULIN LISPRO 100 UNIT/1 ML 3ML VIAL SQ SCH ×6 (02:00→21:55)
[2017-10-07] MEDS: MORPHINE SULFATE 2 MG/ML SYR IV PRN ×3 (02:18→13:05)
[2017-10-07] MEDS: LEVOTHYROXINE SODIUM 50 MCG TAB PO SCH (05:43)
[2017-10-07] MEDS: SODIUM CHLORIDE 0.9% 1000ML 1,000 ML IV SCH (07:00)
[2017-10-07 07:14] LABS: BASOPHILS % 0.3 % (0.0-1.0); EOSINOPHILS # (AUTO) 0.1 (0.0-0.4); EOSINOPHILS % 0.4 % (0.0-6.0); HEMATOCRIT 28.8 % (38.2-49.6); HEMOGLOBIN 10.3 g/dL (14.0-18.0); LYMPHOCYTES # (AUTO) 1.3 (1.0-3.2); LYMPHOCYTES % 9.6 % (18.0-39.1); MEAN CORPUSCULAR HEMOGLOBIN 30.9 pg (28-32); MEAN CORPUSCULAR HGB CONC 35.8 g/dL (31-35); MEAN CORPUSCULAR VOLUME 86.5 fL (81-99); MONOCYTES # (AUTO) 1.3 (0.2-0.8); MONOCYTES % 9.9 % (4.4-11.3); NEUTROPHILS # (AUTO) 10.4 (2.1-6.9); NEUTROPHILS % 79.3 % (38.7-80.0); PLATELET COUNT 210 x10e3/uL (140-360); RED BLOOD COUNT 3.33 x10e6/uL (4.3-5.7); RED CELL DISTRIBUTION WIDTH 15.3 % (11.7-14.4)
[2017-10-07 07:40] LABS: BLOOD UREA NITROGEN 11 mg/dL (7-26); BUN/CREATININE RATIO 14 (6-25); CALCIUM 8.3 mg/dL (8.4-10.2); CARBON DIOXIDE 23 mmol/L (22-29); CHLORIDE 99 mmol/L (98-107); CREATININE, SERUM 0.76 mg/dL (0.72-1.25); EST GLOMERULAR FILTRATION RATE > 60 ML/MIN (60-); GLUCOSE 89 mg/dL (74-118); SODIUM 129 mmol/L (136-145)
[2017-10-07] MEDS: ASPIRIN 81 MG CHEW TAB PO SCH (08:45)
[2017-10-07] MEDS: HYDRALAZINE HCL 10 MG TAB PO SCH ×3 (08:45→21:00)
[2017-10-07] MEDS: HEPARIN SOD (PORCINE) 5,000 UNIT/ML VIAL SC SCH ×2 (08:45→21:00)
[2017-10-07] MEDS: LISINOPRIL 10 MG TAB PO SCH (08:45)
[2017-10-07] MEDS: PIPER-TAZ 3.375 GM 50 ML IV SCH ×4 (08:45→21:00)
[2017-10-07] MEDS: CLOPIDOGREL BISULFATE 75 MG TAB PO SCH (08:45)
--- NOTE | 2017-10-07 14:47 | Progress Note ---
DATE: October 07, 2017 SUBJECTIVE: The patient complains of some incisional pain. Otherwise, he is doing okay. OBJECTIVE: He is afebrile with stable vital signs. Dressing is dry. His hematocrit is stable at 29. ASSESSMENT: Status post right below-knee amputation, stable. PLAN: I have discussed with the patient and his brother the need for Mr. Forbes to go to a jail unit for postop care following the right below-knee amputation. They are aware that going home at this time is not the best course of action and in the best interest of the patient. They are now considering being transferred to jail facility. Job#: [id number]
[2017-10-07] MEDS ORDERED: DEXTROSE 50% SYRINGE 50 ML IV PRN (19:30)
[2017-10-07] MEDS: INSULIN DETEMIR 100 UNIT/ML PEN SQ SCH (21:00)
[2017-10-07] MEDS: ATORVASTATIN 20 MG TAB PO SCH (21:00)
[2017-10-08] VITALS (8 sets, daily range): BP systolic 116–152; BP diastolic 59–73
[2017-10-08] MEDS: LEVOTHYROXINE SODIUM 50 MCG TAB PO SCH (06:00)
[2017-10-08] MEDS: INSULIN LISPRO 100 UNIT/1 ML 3ML VIAL SQ SCH ×4 (07:30→21:45)
[2017-10-08 08:25] LABS: BASOPHILS % 0.3 % (0.0-1.0); EOSINOPHILS % 0.3 % (0.0-6.0); HEMATOCRIT 30.1 % (38.2-49.6); HEMOGLOBIN 10.4 g/dL (14.0-18.0); LYMPHOCYTES # (AUTO) 1.2 (1.0-3.2); LYMPHOCYTES % 10.4 % (18.0-39.1); MEAN CORPUSCULAR HEMOGLOBIN 31.2 pg (28-32); MEAN CORPUSCULAR HGB CONC 34.6 g/dL (31-35); MEAN CORPUSCULAR VOLUME 90.4 fL (81-99); MONOCYTES % 9.3 % (4.4-11.3); NEUTROPHILS # (AUTO) 8.9 (2.1-6.9); NEUTROPHILS % 79.3 % (38.7-80.0); PLATELET COUNT 230 x10e3/uL (140-360); RED BLOOD COUNT 3.33 x10e6/uL (4.3-5.7); RED CELL DISTRIBUTION WIDTH 14.9 % (11.7-14.4)
[2017-10-08 08:45] LABS: ANION GAP 12.4 mmol/L (8-16); BLOOD UREA NITROGEN 12 mg/dL (7-26); BUN/CREATININE RATIO 16 (6-25); CARBON DIOXIDE 25 mmol/L (22-29); CHLORIDE 102 mmol/L (98-107); CREATININE, SERUM 0.74 mg/dL (0.72-1.25); EST GLOMERULAR FILTRATION RATE > 60 ML/MIN (60-); POTASSIUM 3.4 mmol/L (3.5-5.1); SODIUM 136 mmol/L (136-145)
[2017-10-08] MEDS: ASPIRIN 81 MG CHEW TAB PO SCH (08:45)
[2017-10-08] MEDS: HEPARIN SOD (PORCINE) 5,000 UNIT/ML VIAL SC SCH ×2 (08:45→21:45)
[2017-10-08] MEDS: LISINOPRIL 10 MG TAB PO SCH (08:45)
[2017-10-08] MEDS: PIPER-TAZ 3.375 GM 50 ML IV SCH ×2 (08:45→13:00)
[2017-10-08] MEDS: HYDRALAZINE HCL 10 MG TAB PO SCH ×2 (08:45→14:57)
[2017-10-08] MEDS: CLOPIDOGREL BISULFATE 75 MG TAB PO SCH (08:45)
[2017-10-08 08:50] LABS: GLUCOSE 43 mg/dL (74-118)
[2017-10-08] MEDS: HYDROCODONE/APAP 7.5MG-325MG 1 EA TAB PO PRN ×2 (14:10→22:11)
[2017-10-08] MEDS: INSULIN DETEMIR 100 UNIT/ML PEN SQ SCH (21:45)
[2017-10-08] MEDS: ATORVASTATIN 20 MG TAB PO SCH (22:11)
[2017-10-09] VITALS (8 sets, daily range): BP systolic 118–154; BP diastolic 57–75
[2017-10-09] MEDS: HYDRALAZINE HCL 10 MG TAB PO SCH ×3 (01:26→16:09)
[2017-10-09] MEDS: LEVOTHYROXINE SODIUM 50 MCG TAB PO SCH (06:11)
[2017-10-09] MEDS: INSULIN LISPRO 100 UNIT/1 ML 3ML VIAL SQ SCH ×4 (07:30→21:10)
[2017-10-09] MEDS: LISINOPRIL 10 MG TAB PO SCH (09:00)
[2017-10-09] MEDS: CLOPIDOGREL BISULFATE 75 MG TAB PO SCH (09:00)
[2017-10-09] MEDS: ASPIRIN 81 MG CHEW TAB PO SCH (09:00)
[2017-10-09] MEDS: HEPARIN SOD (PORCINE) 5,000 UNIT/ML VIAL SC SCH ×2 (09:17→21:10)
[2017-10-09] MEDS: HYDROCODONE/APAP 7.5MG-325MG 1 EA TAB PO PRN ×2 (16:09→21:59)
--- NOTE | 2017-10-09 19:46 | Discharge Summary ---
HISTORY OF PRESENT ILLNESS: The patient was hospitalized through the emergency room. See also ER notes and electronic medical record. He presented with gangrene of the right large toe and adjacent toe with bone exposed. Involvement of the forefoot. He had been followed by his straw hat brim cutter operator, Dr. Kody Prado, who was called by the emergency room to see the patient when the patient arrived here. The patient was initiated on treatment, wound care and empiric antibiotics. Database was obtained. His preexisting illnesses were treated and controlled including type-2 diabetes mellitus. Hypothyroidism. Appropriate diet was ordered. The patient was actually seen by Dr. Kye Lyon, straw hat brim cutter operator, on the following day at 1458, see notes, recommending vascular reassessment. He consulted the patient's supervisor phosphoric acid, Dr. Easton. Patient had undergone recent vascular reassessment. See prior visits here also. Dr. Easton reviewed the patient's ultrasound of the lower extremities and recommended amputation. I reviewed the case with Dr. Easton and with Dr. Prado. Dr. Prado stated that BKA would be the appropriate procedure as lower amputation would not heal. I discussed this case with Dr. Marin Jenkins, general surgeon, who saw the patient on the day of our discussion. The patient did undergo right eadli-huz-tspu amputation. See operative note dictated on the . Postoperative course was satisfactory. Blood sugar parameters were monitored carefully and treated as the patient's blood sugar was chronically unstable. The patient was re-educated regarding appropriate diet, meds, appropriate parameters for blood sugar. Expressed comprehension although his ability to comply as an outpatient has been extremely limited and his diabetes has been chronically uncontrolled. [id number]. Order was written and entered into the computer for discharge planning and prison facility assessment. Patient discussed the prison facility placement with his family and with his surgeon and although initially reluctant eventually on the agreed to prison facility placement. See October 05 order for prison facility evaluation. Orders were serially clarified. Discharge to prison facility was authorized by myself on the and daily thereafter. See also serial laboratory studies. White counts on admission 9.8, hemoglobin 13.3, platelets 315,000. White count 11.17 on October 08, with hemoglobin 10.4. INR 1.1. Urine sodium 46. Drug levels monitored. Blood sugars, chemistries monitored. Blood cultures negative. Pathology report pending. Inventory Control Specialist report, lower extremity arterial Dopp scan with peripheral vascular disease [id number]. Patient had good pulses in the femoral pulses and [id number]-[id number] posteriorly to the knee. Pedal pulses absent. Chest x-ray clear. Foot x-ray with osteomyelitis, 2nd and 4th metatarsal heads, right. Postsurgical changes on the 2nd PIP, 3rd metatarsal, and 5th metatarsal, on October 01 admission. FINAL IMPRESSIONS 1. Gangrene of right forefoot, large toe, adjacent toe with osteomyelitis. 2. Peripheral vascular disease. 3. Peripheral neuropathy. 4. Chronically uncontrolled diabetes mellitus. 5. Neuropathy and nephropathy. 6. Prior amputations to the right toe including the 5th and 2nd toes. 7. Prior amputations to the left forefoot. 8. Hypertension. 9. Hypothyroidism, controlled with normal thyroid-stimulating hormone here. Plans as above for SNF care, wound care. Physical therapy. Transient antibiotics. Diabetic care and control. Hemoglobin A1c was 11.7 on admission. TSH 0.4. Admission BUN 29 creatinine 1.35 fell to normal here with hydration. See also prior dictations as mentioned. The hospitalist was advised that I will attend the patient at the prison facility. DEDE HUERTA MD Job#: [id number] CQ
[2017-10-09] MEDS: INSULIN DETEMIR 100 UNIT/ML PEN SQ SCH (21:10)
[2017-10-09] MEDS: ATORVASTATIN 20 MG TAB PO SCH (21:59)
[2017-10-10] MEDS: HYDRALAZINE HCL 10 MG TAB PO SCH ×4 (00:34→21:00)
[2017-10-10 00:41] VITALS: BP 143/64
[2017-10-10] MEDS: HYDROCODONE/APAP 7.5MG-325MG 1 EA TAB PO PRN ×3 (03:00→15:33)
[2017-10-10] MEDS: LEVOTHYROXINE SODIUM 50 MCG TAB PO SCH (05:45)
[2017-10-10 05:52] VITALS: BP 159/75
[2017-10-10] MEDS: INSULIN LISPRO 100 UNIT/1 ML 3ML VIAL SQ SCH ×4 (07:30→21:00)
[2017-10-10] MEDS: LISINOPRIL 10 MG TAB PO SCH (10:14)
[2017-10-10] MEDS: ASPIRIN 81 MG CHEW TAB PO SCH (10:14)
[2017-10-10] MEDS: CLOPIDOGREL BISULFATE 75 MG TAB PO SCH (10:14)
[2017-10-10] MEDS: HEPARIN SOD (PORCINE) 5,000 UNIT/ML VIAL SC SCH ×2 (10:16→21:50)
[2017-10-10 11:28] VITALS: BP 141/70
[2017-10-10 14:05] VITALS: BP 141/70
[2017-10-10 16:10] VITALS: BP 150/66
[2017-10-10 20:00] VITALS: BP 130/64
[2017-10-10] MEDS: INSULIN DETEMIR 100 UNIT/ML PEN SQ SCH (21:20)
[2017-10-10] MEDS: ATORVASTATIN 20 MG TAB PO SCH (21:49)
[2017-10-11] VITALS (9 sets, daily range): BP systolic 121–171; BP diastolic 58–77
[2017-10-11] MEDS: HYDROCODONE/APAP 7.5MG-325MG 1 EA TAB PO PRN (00:44)
[2017-10-11] MEDS: LEVOTHYROXINE SODIUM 50 MCG TAB PO SCH (06:04)
[2017-10-11] MEDS: INSULIN LISPRO 100 UNIT/1 ML 3ML VIAL SQ SCH ×4 (07:30→21:41)
[2017-10-11] MEDS: CLOPIDOGREL BISULFATE 75 MG TAB PO SCH (08:56)
[2017-10-11] MEDS: HYDRALAZINE HCL 10 MG TAB PO SCH ×3 (08:56→21:22)
[2017-10-11] MEDS: ASPIRIN 81 MG CHEW TAB PO SCH (08:56)
[2017-10-11] MEDS: LISINOPRIL 10 MG TAB PO SCH (08:57)
[2017-10-11] MEDS: HEPARIN SOD (PORCINE) 5,000 UNIT/ML VIAL SC SCH ×2 (08:59→21:41)
[2017-10-11] MEDS: ATORVASTATIN 20 MG TAB PO SCH (21:22)
[2017-10-11] MEDS: INSULIN DETEMIR 100 UNIT/ML PEN SQ SCH (21:42)
[2017-10-12] VITALS: BP 136/61
[2017-10-12 04:00] VITALS: BP 148/69
[2017-10-12] MEDS: LEVOTHYROXINE SODIUM 50 MCG TAB PO SCH (05:45)
[2017-10-12] MEDS ORDERED: ACETAMINOPHEN/CODEINE 300MG - 30MG TAB PO PRN (06:00)
[2017-10-12] MEDS: INSULIN LISPRO 100 UNIT/1 ML 3ML VIAL SQ SCH ×3 (07:32→16:38)
[2017-10-12 07:56] VITALS: BP 159/73
[2017-10-12] MEDS ORDERED: SOD PHOSPHATE/SOD BIPHOSPHATE ENEMA 132 ML BTL PR ONE (08:00)
[2017-10-12] MEDS: ASPIRIN 81 MG CHEW TAB PO SCH (08:32)
[2017-10-12] MEDS: HYDRALAZINE HCL 10 MG TAB PO SCH ×2 (08:32→15:00)
[2017-10-12] MEDS: LISINOPRIL 10 MG TAB PO SCH (08:33)
[2017-10-12] MEDS: CLOPIDOGREL BISULFATE 75 MG TAB PO SCH (08:33)
[2017-10-12] MEDS: HEPARIN SOD (PORCINE) 5,000 UNIT/ML VIAL SC SCH (08:35)
[2017-10-12 10:18] VITALS: BP 159/73
[2017-10-12 11:42] VITALS: BP 133/64
[2017-10-12 16:11] VITALS: BP 109/54
== END 2017-10-12 18:10 | DRG 240 ==
LOC: ER 13:41 → ERHOLD 17:33 → MED/SURG3 17:35
PROVIDERS: ADMIT Internal Medicine; ATTEND Internal Medicine
PROC: 0Y6H0Z3 Detachment at Right Lower Leg, Low, Open Approach (ICD-10-PCS; principal; 2017-10-04)
PROC: 0JXN0ZZ Transfer Right Lower Leg Subcutaneous Tissue and Fascia, Open Approach (ICD-10-PCS; 2017-10-04)
PROC: 30233N1 Transfusion of Nonautologous Red Blood Cells into Peripheral Vein, Percutaneous Approach (ICD-10-PCS; 2017-10-05)
DX: E11.52 Type 2 diabetes mellitus with diabetic peripheral angiopathy with gangrene (principal); I96 Gangrene, not elsewhere classified; M86.8X7 Other osteomyelitis, ankle and foot; Z79.4 Long term (current) use of insulin; E11.65 Type 2 diabetes mellitus with hyperglycemia; E78.00 Pure hypercholesterolemia, unspecified; E11.43 Type 2 diabetes mellitus with diabetic autonomic (poly)neuropathy; Z91.19 Patient's noncompliance with other medical treatment and regimen; E03.9 Hypothyroidism, unspecified; Z89.432 Acquired absence of left foot; E11.69 Type 2 diabetes mellitus with other specified complication; E11.22 Type 2 diabetes mellitus with diabetic chronic kidney disease; I12.9 Hypertensive chronic kidney disease with stage 1 through stage 4 chronic kidney disease, or unspecified chronic kidney disease; N18.9 Chronic kidney disease, unspecified; Z87.891 Personal history of nicotine dependence; D64.9 Anemia, unspecified
CPT/HCPCS: 36415; 71046; 80048; 80053; 80202; 82948; 83036; 83880; 83935; 84300; 84443; 85025; 85610; 85730; 86850; 86900; 86920; 87040; 88307; 88311; 93005; 93925; 99284; J0690; J0696; J1100; J1644; J2001; J2250; J2270; J2405; J2543; J2710; J2795; J3370; J7030; J7050; J7799; P9016

== ENCOUNTER → 2018-07-07 | Outpatient (CLI) | payer MEDICARE, OTHER ==
--- NOTE | 2018-07-07 12:25 | Diagnostic Imaging Report ---
Radiographs of the right knee HISTORY: Pain COMPARISON: None available. FINDINGS: Bones: No acute displaced fracture. Patient status post below the knee amputation with associated postsurgical change. Osseous alignment is within normal limits. Joints: Scattered degenerative change. No osseous erosion. Soft tissues: Scattered vascular calcification. IMPRESSION: Patient status post below the knee amputation with associated postsurgical change. Scattered degenerative change. No osseous erosion Signed by: Dr. Anderson Reese M.D. on 07/07/2018 12:21 PM
== END ==
LOC: RAD 11:22
PROVIDERS: ATTEND Internal Medicine
DX: M25.461 Effusion, right knee (principal); M17.11 Unilateral primary osteoarthritis, right knee

== ENCOUNTER → 2019-01-22 | Outpatient (CLI) | payer MEDICARE, OTHER | LOC: RAD 10:19 | PROVIDERS: ATTEND Internal Medicine | DX: I65.29 Occlusion and stenosis of unspecified carotid artery (principal) | CPT/HCPCS: 93880 ==

== ENCOUNTER → 2021-03-03 | Day surgery (SDC) | payer MEDICARE, OTHER ==
[2021-02-27 11:27] LABS: BASOPHILS % 0.6 % (0.0-1.0); EOSINOPHILS # (AUTO) 0.1 (0.0-0.4); EOSINOPHILS % 1.8 % (0.0-6.0); HEMATOCRIT 36.2 % (38.2-49.6); LYMPHOCYTES # (AUTO) 2.6 (1.0-3.2); LYMPHOCYTES % 36.3 % (18.0-39.1); MEAN CORPUSCULAR HEMOGLOBIN 32.7 pg (28-32); MEAN CORPUSCULAR HGB CONC 33.1 g/dL (31-35); MEAN CORPUSCULAR VOLUME 98.6 fL (81-99); MONOCYTES # (AUTO) 0.7 (0.2-0.8); MONOCYTES % 9.3 % (4.4-11.3); NEUTROPHILS # (AUTO) 3.7 (2.1-6.9); NEUTROPHILS % 51.6 % (38.7-80.0); PLATELET COUNT 176 x10e3/uL (140-360); RED BLOOD COUNT 3.67 x10e6/uL (4.3-5.7); RED CELL DISTRIBUTION WIDTH 12.4 % (11.7-14.4)
[~2021-03-03] MED LIST changes: +DEXTROSE 5% 250ML 250 ML IV ONE; +HUMULIN R SQ; +METFORMIN HCL500 MG PO; +OR PHACO EYE KIT ONE; +PREOP PHACO EYE KIT ONE; +SYNTHROID125 MCG PO; +ZETIA10 MG PO
[2021-03-03 14:40] VITALS: BP 143/71
== END | disposition home or self-care (01) ==
LOC: OR 10:13
PROVIDERS: ATTEND Ophthalmology
DX: H25.11 Age-related nuclear cataract, right eye (principal); E11.22 Type 2 diabetes mellitus with diabetic chronic kidney disease; I12.9 Hypertensive chronic kidney disease with stage 1 through stage 4 chronic kidney disease, or unspecified chronic kidney disease; N18.9 Chronic kidney disease, unspecified; I10 Essential (primary) hypertension; E03.9 Hypothyroidism, unspecified; Z89.511 Acquired absence of right leg below knee; Z01.812 Encounter for preprocedural laboratory examination; Z20.822 Contact with and (suspected) exposure to COVID-19; Z79.82 Long term (current) use of aspirin; Z79.84 Long term (current) use of oral hypoglycemic drugs
CPT/HCPCS: 36415 ×2; 66982; 82948; 85025; J7070; U0002; V2632

== ENCOUNTER → 2021-05-12 | Day surgery (SDC) | payer MEDICARE, OTHER ==
[2021-05-11 10:39] LABS: BASOPHILS % 0.4 % (0.0-1.0); EOSINOPHILS # (AUTO) 0.1 (0.0-0.4); EOSINOPHILS % 1.6 % (0.0-6.0); HEMATOCRIT 40.1 % (38.2-49.6); HEMOGLOBIN 13.1 g/dL (14.0-18.0); MEAN CORPUSCULAR HEMOGLOBIN 32.3 pg (28-32); MEAN CORPUSCULAR HGB CONC 32.7 g/dL (31-35); MONOCYTES # (AUTO) 0.7 (0.2-0.8); MONOCYTES % 9.9 % (4.4-11.3); NEUTROPHILS # (AUTO) 4.1 (2.1-6.9); NEUTROPHILS % 58.8 % (38.7-80.0); PLATELET COUNT 152 x10e3/uL (140-360); RED BLOOD COUNT 4.05 x10e6/uL (4.3-5.7); RED CELL DISTRIBUTION WIDTH 12.6 % (11.7-14.4)
[~2021-05-12] MED LIST changes: +ATORVASTATIN CA20 MG PO; -DEXTROSE 5% 250ML 250 ML IV ONE; +MIDAZOLAM HCL 2 MG/2 ML VIAL ONE
[2021-05-12 11:17] VITALS: BP 166/75
== END | disposition home or self-care (01) ==
LOC: OR 08:26
PROVIDERS: ATTEND Ophthalmology
DX: H25.12 Age-related nuclear cataract, left eye (principal); E05.90 Thyrotoxicosis, unspecified without thyrotoxic crisis or storm; E11.9 Type 2 diabetes mellitus without complications; I10 Essential (primary) hypertension; E78.5 Hyperlipidemia, unspecified; I73.9 Peripheral vascular disease, unspecified; I45.10 Unspecified right bundle-branch block; Z01.810 Encounter for preprocedural cardiovascular examination; Z01.812 Encounter for preprocedural laboratory examination; Z20.822 Contact with and (suspected) exposure to COVID-19; Z79.4 Long term (current) use of insulin; Z79.899 Other long term (current) drug therapy
CPT/HCPCS: 36415 ×2; 66984; 82948; 85025; 93005; J2250; U0002; V2632